=== PATIENT | female | born 1970 | race Caucasian/White ===

== ENCOUNTER 2017-09-27 05:00 | Emergency (ER) | payer MEDICAID, SELFPAY ==
[2017-09-27 05:01] VITALS: BP 159/92; PULSE 97; RESP 20; TEMP 36.8; O2SAT 98; BMI 39.4
--- NOTE | 2017-09-27 05:08 | ED.DCSUM_ITS ---
- ER Visit Summary Date of Service: 09/27/17 Chief Complaint: Epigastric pain History of Present Illness: The patient is a 47 F with significant history for esophageal reflux presents to the emergency department left upper quadrant pain. Patient states that the pain started tonight when she laid down. She states that she had a burning pain in her midepigastric area and her left upper quadrant. She states pain also went to her back ridge states that she does get pain like this from time to time. She was actually seen here about 4 months ago for the same. At that time, she was on Bactrim and it was thought that this was causing her gastritis. She was given GI cocktail and had significant improvement. Patient has had prior history of and appendectomy. She still has her gallbladder. She denies any alcohol use. She denies any history of pancreatitis. She has had no change in bowel habits. Physical Examination: Vital signs reviewed General: Well-nourished, well-developed Head: Normocephalic, atraumatic Eyes: Pupils equal and reactive, extraocular muscles intact Neck, supple, no lymphadenopathy Heart: Regular rate and rhythm Respiratory: No distress, clear bilaterally Abdomen: Soft, tender in the midepigastric area and left upper quadrant without rebound or guarding, nondistended, no peritoneal signs Back: Nontender Extremities: Nontender, no edema, no cords Skin: Normal color no rash Neuro: Alert and oriented, no focal or lateralizing deficits Test Results: [] Emergency Department Course and Treatment: The patient was mildly tender in the midepigastric area but had no rebound or guarding. She does have a history of rather significant gastritis and states that this feels the same. There is been no recent change in medications. IV was established. She was given Zofran and a GI cocktail. This did improve her symptoms but she was still having mild pain. She declined analgesics. I did obtain screening labs. CBC is currently pending, but LFTs and lipase are normal. I do not feel this is acute pancreatitis. Do feel like this is more likely just gastritis versus ulcer. She has had no changes in bowel habits or bleeding. She is given a second GI cocktail with continued improvement. The patient does get flares like this from time to time. I am going to prescribe viscous lidocaine that she can use with her Mylanta to help relieve these acute flares. I do for the patient is safe for outpatient follow-up. She will be discharged home. Treatment Plan: [] Disposition: Discharge Impression: 1. Acute gastritis This note was generated with [employer] dictation software. It may contain incorrect words, spelling, and punctuation that were not noted in review of the chart prior to signing ED Disposition - Plan for ED Patient: Chief Complaint: Abd Pain Instructions: ED PUD Vs Gastritis Prescriptions: Lidocaine 2% Viscous [Xylocaine Viscous] 15 ml PO 4X/DAY PRN #200 ml PRN Reason: Gi Cramping Referrals: Goyo Beckett DO [Primary Care Provider] -
[2017-09-27] MEDS: 0.9% Normal Saline 1,000 ML 125 ML IV (05:16)
[2017-09-27] MEDS: Ondansetron 4 MG/2 ML Vial IV (05:23)
[2017-09-27 06:20] LABS: AST(SGOT) 28 U/L (15-37); Alanine Aminotransfer ALT/SGPT 40 U/L (13-56); Albumin, Serum 3.6 g/dL (3.2-5.0); Alkaline Phosphatase 109 U/L (45-117); Anion Gap 8 (5-15); BUN 9 mg/dL (7-18); BUN/Creat Ratio 10.8 RATIO (10-20); Calcium,Total 8.5 mg/dL (8.5-10.1); Chloride 108 mmol/L (98-107); Creatinine, Serum 0.84 mg/dL (0.55-1.02); EST Glomerular Filtration Rate 78 mL/min (>60); Est Glom Filt Rate - Afr Amer 94 mL/min (>60); Globulin 3.5 g/dL (2.2-4.2); Glucose 255 mg/dL (74-106); Lipase 218 U/L (73-393); Potassium 4.4 mmol/L (3.5-5.1); Protein, Total 7.1 g/dL (6.4-8.2); Sodium Level 141 mmol/L (136-145)
[2017-09-27 06:30] LABS: Absolute Lymphocyte Count 2.97 X10^3/ul (0.83-4.51); Absolute Neutrophil Count 4.6 X10^3/uL (2.0-7.7); Basophil# 0.04 X10^3/uL; Basophil% 0.5 % (0-1); Eosinophils% 2.3 % (0-5); Hematocrit 42.2 % (37-47); Hemoglobin 14.1 g/dl (12.0-15.0); Lymphocyte # 2.97 X10^3/ul (4.0); Lymphocyte % 34.2 % (19-41); Mean Corp Hgb Conc 33.4 g/gl (32-36); Mean Corpuscular Hgb 30.7 pg (27.0-32.0); Mean Corpuscular Volume 91.9 fL (81-99); Mean Platelet Vol. 11.2 fl (6.2-12.0); Monocyte# 0.86 X10^3/uL; Monocyte% 9.9 % (0-10); Neutrophil % 52.9 % (47-70); Platelet Count 308 K/mm3 (150-450); RBC Distribution Width CV 14.4 % (11.6-14.6); RBC Distribution Width SD 48.8 fl (35.1-43.9); Red Blood Count 4.59 M/mm3 (4.2-5.4); White Blood Count 8.7 K/mm3 (4.4-11.0)
[2017-09-27 06:34] LABS: POSITIVE COUNT NO; POSITIVE DIFFERENTIAL NO; POSITIVE MORPHOLOGY NO
[2017-09-27 06:40] VITALS: BP 146/86; PULSE 85; RESP 18; O2SAT 95
== END 2017-09-27 06:44 | disposition home or self-care (01) ==
LOC: ED 05:36
PROVIDERS: Emergency Provider Emergency Medicine; Family Provider Student in an Organized Health Care Education/Training Program; PCP Student in an Organized Health Care Education/Training Program
DX: K29.00 Acute gastritis without bleeding (principal); E66.9 Obesity, unspecified; K21.9 Gastro-esophageal reflux disease without esophagitis; E11.9 Type 2 diabetes mellitus without complications; Z68.39 Body mass index [BMI] 39.0-39.9, adult; Z79.84 Long term (current) use of oral hypoglycemic drugs; Z79.899 Other long term (current) drug therapy; Z72.0 Tobacco use
CPT/HCPCS: 80053; 83690; 85025; 99284; J7030; A4216

== ENCOUNTER 2018-04-17 18:46 | Emergency (ER) | payer MEDICAID, SELFPAY ==
[2018-04-17] VITALS (7 sets, daily range): BP systolic 115–132; BP diastolic 69–99; PULSE 74–135; RESP 12–25; TEMP 37.4; O2SAT 94–97; BMI 38.4
--- NOTE | 2018-04-17 18:49 | ED.RN ---
CALLED FOR EKG PER RN REQUEST, PULLED OLD EKGS FOR
--- NOTE | 2018-04-17 19:14 | EKG12_ITS ---
Test Reason : CHEST PAIN Blood Pressure : / mmHG Vent. Rate : 122 BPM Atrial Rate : 122 BPM P-R Int : 142 ms QRS Dur : 088 ms QT Int : 320 ms P-R-T Axes : 058 011 045 degrees QTc Int : 456 ms Sinus tachycardia Otherwise normal ECG Confirmed by VALERI VELARDE, GERMAN ([id number]), movie editor FRITZ FINCH ([id number]) on 04/19/2018 2:15:47 PM Referred By: DMITRI Confirmed By:GERMAN TRAMMELL MD
--- NOTE | 2018-04-17 19:20 | RAD_ITS ---
STUDY: X-RAY CHEST REASON FOR EXAM: Female, 47 years old. Chest pain. TECHNIQUE: Portable chest. COMPARISON: 12/15/2015. FINDINGS: The lungs are clear and expanded. There is no demonstrated pleural abnormality. Normal size heart. Normal mediastinum and perico. Normal visualized pulmonary arteries. Normal visualized aortic arch and descending thoracic aorta. Normal visualized thoracic spine. Normal visualized ribs, clavicles, and shoulders. There is no demonstrated abnormality of the visualized soft tissue structures of the upper abdomen. RAD/Chest 1 View (Portable) IMPRESSION: Normal x-ray examination of the chest. Electronically Signed: Gila Sahni MD at 20:20 EST Tel , Service support ,
[2018-04-17] MEDS: Ondansetron 4 MG/2 ML Vial IV (19:28)
[2018-04-17] MEDS: Aspirin 81 MG TAB.CHEW 324 MG PO (19:28)
[2018-04-17] MEDS: 0.9% Normal Saline 1,000 ML 150 ML IV (19:28)
[2018-04-17] MEDS: Ketorolac 15 MG/ML Vial IV (19:28)
[2018-04-17 19:37] LABS: D-Dimer Quantitative (DVT/PE) 2.61 FEU/ug/m (0.27-0.49)
--- NOTE | 2018-04-17 19:38 | ED.RN ---
lab called with critical lab results. D dimer 0.61. Dr. Bell made aware at this time
[2018-04-17 19:44] LABS: Absolute Lymphocyte Count 2.16 X10^3/ul (0.83-4.51); Absolute Neutrophil Count 10.4 X10^3/uL (2.0-7.7); Basophil# 0.04 X10^3/uL; Basophil% 0.3 % (0-1); Eosinophil# 0.06 X10^3/uL; Eosinophils% 0.4 % (0-5); Hematocrit 41.6 % (37-47); Hemoglobin 14.1 g/dl (12.0-15.0); Lymphocyte # 2.16 X10^3/ul (4.0); Lymphocyte % 15.2 % (19-41); Mean Corp Hgb Conc 33.9 g/gl (32-36); Mean Corpuscular Hgb 31.8 pg (27.0-32.0); Mean Corpuscular Volume 93.7 fL (81-99); Mean Platelet Vol. 11.3 fl (6.2-12.0); Monocyte# 1.55 X10^3/uL; Monocyte% 10.9 % (0-10); Neutrophil # 10.37 X10^3/uL (2.7-7.7); Neutrophil % 72.9 % (47-70); Platelet Count 345 K/mm3 (150-450); RBC Distribution Width CV 14.6 % (11.6-14.6); RBC Distribution Width SD 48.7 fl (35.1-43.9); Red Blood Count 4.44 M/mm3 (4.2-5.4); White Blood Count 14.2 K/mm3 (4.4-11.0)
[2018-04-17 19:45] LABS: Differential Indicated SCAN CRITERIA MET; POSITIVE COUNT NO; POSITIVE DIFFERENTIAL YES; POSITIVE MORPHOLOGY NO
[2018-04-17 19:47] LABS: AST(SGOT) 21 U/L (15-37); Alanine Aminotransfer ALT/SGPT 33 U/L (13-56); Albumin, Serum 3.8 g/dL (3.2-5.0); Alkaline Phosphatase 124 U/L (45-117); Anion Gap 9 (5-15); BUN 6 mg/dL (7-18); BUN/Creat Ratio 7.5 RATIO (10-20); Bilirubin, Direct 0.24 mg/dL (0.00-0.30); Calcium,Total 9.3 mg/dL (8.5-10.1); Chloride 101 mmol/L (98-107); EST Glomerular Filtration Rate 82 mL/min (>60); Est Glom Filt Rate - Afr Amer 99 mL/min (>60); Estimated Creatinine Clearance 75.07 ml/min; Globulin 4.5 g/dL (2.2-4.2); Glucose 183 mg/dL (74-106); Lipase 99 U/L (73-393); Protein, Total 8.3 g/dL (6.4-8.2); Sodium Level 137 mmol/L (136-145)
--- NOTE | 2018-04-17 19:56 | CT_ITS ---
STUDY: CTA CHEST REASON FOR EXAM: Female, 47 years old. Left-sided chest pain. RADIATION DOSAGE (If Supplied By Facility): CTDIvol = ( 13.20 ) mGy, DLP = ( 659.18 ) mGycm TECHNIQUE: The examination was performed with the intravenous administration of 100 ml of Isovue 370 contrast material. Post-processing of the angiographic images was performed, with multiplanar reformation and 3D reconstruction. Individualized dose optimization techniques were used for this CT. COMPARISON: None. FINDINGS: The heart and pericardium are normal. The aorta is normal in caliber, with no aneurysm or dissection. There is no mediastinal mass or adenopathy. There is no hilar or axillary adenopathy. There is no evidence of pulmonary embolus. Pulmonary arteries are unremarkable. There is no pleural effusion. There is no pulmonary consolidation. No pulmonary mass or nodule. No interstitial or cystic disease. There is diffuse fatty infiltration of the liver. Visualized abdomen is otherwise unremarkable. There is no osseous abnormality. CT/CTA Chest W/WO Contrast IMPRESSION: 1. No evidence of pulmonary embolus or aortic dissection. 2. Hepatic steatosis. Electronically Signed: Gila Sahni MD at 22:24 EST Tel , Service support ,
[2018-04-17 20:32] LABS: Differential Comment SCANNED; Platelet Estimate ADEQUATE (ADEQ)
--- NOTE | 2018-04-17 23:26 | ED.DCSUM_ITS ---
- ER Visit Summary Date of Service: 04/17/18 Chief Complaint: Chest pain History of Present Illness: The patient is a 47 F who reports some nausea and vomiting since last evening. No measured fever. She states she has chronic cough that is unchanged from baseline. She reports sudden onset of chest pain w hile lying at rest tonight. She describes as a needlelike sensation in the left lower ribs. She denies personal history of cardiac disease, but has significant family history. She does have a history of diabetes, hypertension, high cholesterol, hypothyroidism, sleep apnea. Physical Examination: Blood pressure is 132/99, temperature 99.3, heart rate 120, respiratory rate 24, pulse ox 95% on room air. Patient is sitting upright in bed. She appears uncomfortable but no acute distress. Head neck examination is grossly unremarkable. Heart is tachycardic and regular. Lung sounds are grossly clear. She does have reproducible tenderness of the left lower ribs. Abdomen is soft with epigastric tenderness. No guarding or rebound. Hypoactive bowel sounds are noted throughout. Lower external examination was no calf tenderness or edema. Test Results: EKG is sinus tach at 122 with no sign of acute ischemia. Chest x- ray is unremarkable. CBC was a white count of 14.2 with 73% neutrophils. Chemistry studies only significant for glucose of 183. LFTs and lipase unremarkable. Troponin negative. TSH is slightly elevated at 3.8. D-dimer is 2.61. CTA of the chest is obtained that shows no evidence of PE or dissection. No focal infiltrate. Emergency Department Course and Treatment: Patient received aspirin and Zofran on arrival along with a small dose of Toradol. She declined anything stronger for pain. On repeat evaluation patient is resting comfortably. I did discuss my concern with her about her risk factors and significant family history. At this time patient chooses to sign out AGAINST MEDICAL ADVICE. She was encouraged to return immediately if her symptoms worsen or if she changes her mind. Treatment Plan: [] Disposition: AMA Impression: Chest pain This note was generated with [employer] dictation software. It may contain incorrect words, spelling, and punctuation that were not noted in review of the chart prior to signing ED Disposition - Plan for ED Patient: Disposition: Home or Assisted Living Chief Complaint: Chest Pain Instructions: ED Chest Pain Atypical Unkn Cause Referrals: Goyo Beckett DO [Primary Care Provider] - As soon as possible Additional Instructions: You have chosen to sign out. You may return at any time for further evaluation and treatment. Please follow-up with your primary care physician as soon as possible. If your symptoms return or if you change your mind, please return to ED immediately.
--- NOTE | 2018-04-17 23:30 | DCINST.ED_ITS ---
ED Disposition - Plan for ED Patient: Disposition: Home or Assisted Living Chief Complaint: Chest Pain Instructions: ED Chest Pain Atypical Unkn Cause Referrals: Goyo Beckett DO [Primary Care Provider] - As soon as possible Additional Instructions: You have chosen to sign out. You may return at any time for further evaluation and treatment. Please follow-up with your primary care physician as soon as possible. If your symptoms return or if you change your mind, please return to ED immediately.
[2018-04-19 11:54] LABS: Pathologist Review Reviewed
== END 2018-04-17 23:59 | disposition left against medical advice (07) ==
PROVIDERS: Emergency Provider Emergency Medicine; Family Provider Student in an Organized Health Care Education/Training Program; PCP Student in an Organized Health Care Education/Training Program
DX: R07.9 Chest pain, unspecified (principal); K76.0 Fatty (change of) liver, not elsewhere classified; Z53.21 Procedure and treatment not carried out due to patient leaving prior to being seen by health care provider; I10 Essential (primary) hypertension; E78.00 Pure hypercholesterolemia, unspecified; E03.9 Hypothyroidism, unspecified; E11.9 Type 2 diabetes mellitus without complications; K21.9 Gastro-esophageal reflux disease without esophagitis; E66.9 Obesity, unspecified; Z72.0 Tobacco use; Z79.84 Long term (current) use of oral hypoglycemic drugs; Z79.899 Other long term (current) drug therapy
CPT/HCPCS: 71045; 71275; 80048; 80076; 83690; 84443; 84484; 85025; 85379; 93005; 96361; 96374; 96375; 99285; J7030; Q9967; J2405

== ENCOUNTER 2018-04-18 22:40 | Emergency (ER) | payer MEDICAID, SELFPAY ==
[2018-04-17 18:47] VITALS: BMI 38.4
[2018-04-18 22:41] VITALS: BP 150/90; PULSE 114; RESP 26; TEMP 37.1; O2SAT 95; BMI 38.4
[2018-04-18 22:47] VITALS: O2SAT 96
--- NOTE | 2018-04-18 22:57 | ED.DCSUM_ITS ---
- ER Visit Summary Date of Service: 04/18/18 Chief Complaint: [] She stated that this afternoon she developed some right- sided rib pain. It is reproducible with pushing on it movement and taking a cough. She thinks she might have strained a rib or has pleurisy. She does not have a significant cold. She was seen in the emergency department department yesterday with intermittent chest tingling. She was tachycardic at that time. She had a CTA of her chest as well as lab work and a chest x-ray and EKG that just showed sinus tachycardia otherwise negative workup. She stated those symptoms never came back. She took an aspirin this morning. Denies any other symptoms History of Present Illness: The patient is a 47 F [] Physical Examination: [] Vital signs reviewed General: Well-nourished well-developed Head: Normocephalic atraumatic Eyes: Pupils equal round and reactive to light extraocular movements intact ENT: TMs clear no hemotympanum no trauma Neck: Nontender full range of motion Cardiovascular: Regular cardia with normal rhythm no murmurs normal S1-S2 Respiratory: No distress clear to auscultation bilaterally chest piinpoint tenderness right lateral ribs where she says she feels pain. No swelling deformity. It is in the intercostal region Abdomen: Soft nontender nondistended normal bowel sounds no masses Back: Nontender no CVA tenderness Extremities: Nontender active range of motion ?4 extremities no trauma Skin: Normal color no trauma Neuro alert oriented cranial nerves II through XII intact normal strength sensation reflexes Test Results: [] Emergency Department Course and Treatment: [] I discussed doing workup with the patient. At this time this was just done yesterday including lab work and imaging. She would like to hold off on doing this and treat this with anti-inflammatories. I do not feel this is cardiac. I do not think she has a PE if she just had a negative CTA yesterday. I think this is likely pleurisy versus intercostal muscle strain from cough. She was given injection of Toradol at her request and will continue anti-inflammatories Treatment Plan: [] Disposition: [] Impression: [] Right-sided rib pain This note was generated with [employer] dictation software. It may contain incorrect words, spelling, and punctuation that were not noted in review of the chart prior to signing ED Disposition - Plan for ED Patient: Chief Complaint: Shortness of Breath Referrals: Goyo Beckett DO [Primary Care Provider] -
--- NOTE | 2018-04-18 22:57 | ED.DEP ---
ED Disposition - Plan for ED Patient: Disposition: Home or Assisted Living Chief Complaint: Shortness of Breath Instructions: Pleurisy Referrals: Goyo Beckett DO [Primary Care Provider] -
[2018-04-18] MEDS: Ketorolac 60 MG/2 ML Vial IM (23:04)
[2018-04-18 23:17] VITALS: BP 148/76; PULSE 81; RESP 16; O2SAT 97
== END 2018-04-18 23:20 | disposition home or self-care (01) ==
LOC: ED 23:01
PROVIDERS: Emergency Provider Emergency Medicine; Family Provider Student in an Organized Health Care Education/Training Program; PCP Student in an Organized Health Care Education/Training Program
DX: R07.81 Pleurodynia (principal); I10 Essential (primary) hypertension; E11.9 Type 2 diabetes mellitus without complications; J44.9 Chronic obstructive pulmonary disease, unspecified; E03.9 Hypothyroidism, unspecified; Z72.0 Tobacco use; Z79.84 Long term (current) use of oral hypoglycemic drugs; Z79.899 Other long term (current) drug therapy
CPT/HCPCS: 96372; 99282

== ENCOUNTER 2018-07-07 22:00 | Emergency (ER) | payer MEDICAID, SELFPAY ==
[2018-07-07 22:01] VITALS: BP 167/101; PULSE 106; RESP 16; TEMP 37; O2SAT 97; BMI 36.1
[2018-07-07 22:25] LABS: Bacteria 0 SEEN /hpf (None Seen); Mucous, Urine 0 SEEN /hpf (<or=2+); Red Blood Cells-Urine 0 SEEN /hpf (0-5); White Blood Cells 0 SEEN /hpf (0-5)
[2018-07-07 22:36] LABS: Color, Urine Yellow (Yellow); Glucose, Dipstick 1000 mg/dl (Normal); Ketone-Dipstick Negative (Negative); Leukocyte Esterase-Dipstick Negative /ul (Negative); Nitrite-Dipstick Negative (Negative); Occult Blood-Urine Negative /ul (Negative); Protein-Dipstick Negative (Negative); Urine Bilirubin Dipstick Negative (Negative); Urine Clarity Clear (Clear); Urine Urobilinogen Normal (Normal)
[2018-07-07] MEDS: 0.9% Normal Saline 1,000 ML 999 ML IV (22:40)
[2018-07-07] MEDS: Ketorolac 30 MG/ML Syringe IV (22:41)
[2018-07-07 22:45] LABS: Absolute Lymphocyte Count 2.61 X10^3/ul (0.83-4.51); Absolute Neutrophil Count 5.9 X10^3/uL (2.0-7.7); Basophil# 0.07 X10^3/uL; Basophil% 0.7 % (0-1); Eosinophil# 0.23 X10^3/uL; Eosinophils% 2.4 % (0-5); Hematocrit 45.3 % (37-47); Hemoglobin 15.1 g/dl (12.0-15.0); Lymphocyte # 2.61 X10^3/ul (4.0); Lymphocyte % 27.4 % (19-41); Mean Corp Hgb Conc 33.3 g/gl (32-36); Mean Corpuscular Hgb 30.6 pg (27.0-32.0); Mean Corpuscular Volume 91.9 fL (81-99); Mean Platelet Vol. 11.2 fl (6.2-12.0); Monocyte# 0.72 X10^3/uL; Monocyte% 7.6 % (0-10); Neutrophil # 5.87 X10^3/uL (2.7-7.7); Neutrophil % 61.7 % (47-70); Platelet Count 324 K/mm3 (150-450); RBC Distribution Width SD 47.1 fl (35.1-43.9); Red Blood Count 4.93 M/mm3 (4.2-5.4); White Blood Count 9.5 K/mm3 (4.4-11.0)
[2018-07-07 22:47] LABS: Squamous Epithelial Cells - UA 0-5 SEEN /hpf (5-10)
[2018-07-07 22:47] LABS: POSITIVE COUNT NO; POSITIVE DIFFERENTIAL NO; POSITIVE MORPHOLOGY NO
[2018-07-07 23:00] LABS: AST(SGOT) 27 U/L (15-37); Alanine Aminotransfer ALT/SGPT 39 U/L (13-56); Alkaline Phosphatase 121 U/L (45-117); Anion Gap 8 (5-15); BUN 7 mg/dL (7-18); BUN/Creat Ratio 9.8 RATIO (10-20); Calcium,Total 8.9 mg/dL (8.5-10.1); Chloride 102 mmol/L (98-107); Creatinine, Serum 0.72 mg/dL (0.55-1.02); EST Glomerular Filtration Rate 92 mL/min (>60); Est Glom Filt Rate - Afr Amer 112 mL/min (>60); Estimated Creatinine Clearance 82.51 ml/min; Globulin 3.6 g/dL (2.2-4.2); Glucose 297 mg/dL (74-106); Lipase 115 U/L (73-393); Potassium 3.9 mmol/L (3.5-5.1); Protein, Total 7.6 g/dL (6.4-8.2); Sodium Level 137 mmol/L (136-145)
[2018-07-08] VITALS: BP 148/60; PULSE 98; RESP 18; O2SAT 96
[2018-07-08] MEDS: Mag Hydrox/Al Hydrox/Simeth 30 ML UDC PO (00:36)
--- NOTE | 2018-07-08 00:43 | ED.DEP ---
ED Disposition - Plan for ED Patient: Instructions: ED PUD Vs Gastritis Prescriptions: Sucralfate [Carafate] 1 gm PO 4X/DAY 14 Days tab Referrals: Goyo Beckett DO [Primary Care Provider] - Brandon Crystal MD [STAFF PHYSICIAN] -
--- NOTE | 2018-07-08 07:52 | ED.DCSUM_ITS ---
- ER Visit Summary Date of Service: 07/08/18 Chief Complaint: Abdominal pain History of Present Illness: The patient is a 48 F who presents with abdominal pain. It began yesterday. It waxes and wanes. It is described as both burning and stabbing. It is located in the epigastrium and radiates to the back. It was initially just the right upper quadrant but is now spread to a bandlike distribution. The patient rates it as 10 out of 10 however she notes that the worst pain she is ever had was when she was in labor and that was 20 out of 10. No nausea vomiting or diarrhea. Physical Examination: Heart rate 106 blood pressure 167/101 Patient resting comfortably no distress Heart regular rhythm slightly tachycardic Lungs are clear Abdomen soft she does have some epigastric abdominal tenderness without guarding without rebound Alert Test Results: Labs unremarkable except glucose 297. Urinalysis shows glucose otherwise normal. Emergency Department Course and Treatment: Patient was initially treated with fluids and Toradol. She really had no relief with Toradol. She was given a GI cocktail with significant improvement. She does have a history of peptic ulcer disease. She is Wilson on proton pump inhibitor. I gave a prescription for Carafate. I advised that she follow-up with Dr. Crystal who previously treated her H. pylori. Treatment Plan: [] Disposition: Discharge Impression: Epigastric abdominal pain, suspect gastritis This note was generated with [employer] dictation software. It may contain incorrect words, spelling, and punctuation that were not noted in review of the chart prior to signing ED Disposition - Plan for ED Patient: Disposition: Home or Assisted Living Instructions: ED PUD Vs Gastritis Prescriptions: Sucralfate [Carafate] 1 gm PO 4X/DAY 14 Days tab Referrals: Brandon Crystal MD [STAFF PHYSICIAN] - Goyo Beckett DO [Primary Care Provider] -
== END 2018-07-08 00:50 | disposition home or self-care (01) ==
LOC: ED 22:32
PROVIDERS: Emergency Provider Emergency Medicine; Family Provider Student in an Organized Health Care Education/Training Program; PCP Student in an Organized Health Care Education/Training Program
DX: R10.13 Epigastric pain (principal); K21.9 Gastro-esophageal reflux disease without esophagitis; E11.9 Type 2 diabetes mellitus without complications; Z79.84 Long term (current) use of oral hypoglycemic drugs; Z79.899 Other long term (current) drug therapy; Z72.0 Tobacco use
CPT/HCPCS: 80048; 80076; 81001; 83690; 85025; 96361; 96374; 99285; J7030; A4216

== ENCOUNTER 2018-08-25 22:04 | Emergency (ER) | payer MEDICAID, SELFPAY ==
[2018-08-25 22:06] VITALS: BP 143/94; PULSE 110; RESP 18; TEMP 37.8; O2SAT 98; BMI 34.8
--- NOTE | 2018-08-25 22:42 | CT_ITS ---
We are attempting to reach Ej Prater MD to discuss findings. An addendum with communication details will be sent when the communication is complete. STUDY: CT ABDOMEN AND PELVIS WITH CONTRAST REASON FOR EXAM: Female, 48 years old. Abdominal pain RADIATION DOSAGE (If Supplied By Facility): CTDIvol = ( 18.35 ) mGy, DLP = ( 1896.72 ) mGycm TECHNIQUE: Transaxial images were obtained from the dome of the diaphragm to the symphysis pubis without oral contrast. 100ML IV Isovue 300 was administered. Sagittal and coronal images were reconstructed. Individualized dose optimization techniques were used for this CT. COMPARISON: None. FINDINGS: The visualized lung bases are unremarkable. The visualized portions of the heart are within normal limits. Decreased attenuation to the liver. There are innumerable enhancing regions throughout the liver. Some these demonstrate a focal internal area of low attenuation the largest measuring 2.2 cm. Normal gallbladder and extrahepatic biliary system. Normal spleen. 4.3 x 3.4 cm masslike appearance in the distal pancreas. The splenic vein within this region is not well seen. There is some collateralization of the splenic venous return. Normal bilateral adrenal glands. Nonspecific perinephric fatty stranding. There is no hydronephrosis identified. Normal visualized stomach. Normal small intestine. Focal area sigmoid colonic wall thickening. Could be related to underdistention. However recommend correlation with any recent colonoscopy or other studies versus follow-up to ensure resolution. There is non-visualization of the appendix. There is diffuse atherosclerotic calcification of the abdominal aorta, without a demonstrated aneurysm. Normal inferior vena cava. Nonspecific subcentimeter short axis mesenteric and retroperitoneal lymph nodes. Normal urinary bladder. Normal abdominal wall. There are diffuse degenerative changes of the visualized lumbar spine. CT/Abdomen/Pelvis W IV Cont ONLY IMPRESSION: The liver is markedly heterogeneous. There is numerous areas of increased attenuation with some of these demonstrating a more focal internal area of low attenuation. No prior studies are available for comparison. Recommend MRI liver mass protocol to further evaluate. Findings may represent diffuse metastatic disease. There is masslike thickening involving the distal aspect of the pancreas. Recommend correlation with the above-mentioned liver mass protocol MRI scan to further evaluate. There is nonvisualization of a segment of the splenic vein around the above-mentioned masslike pancreatic structure. There is some collateralization of the splenic vein drainage. This could represent splenic vein occlusion within this region. If this is indeed a mass this cannot exclude a mass invasion of the splenic vein. Electronically Signed: Ernesto Green, at 1:01 EDT Tel , Service support ,
[2018-08-25 22:56] LABS: Bedside Glucose 333 mg/dL (70-110)
[2018-08-25 23:02] LABS: Absolute Lymphocyte Count 2.04 X10^3/ul (0.83-4.51); Absolute Neutrophil Count 9.1 X10^3/uL (2.0-7.7); Basophil# 0.05 X10^3/uL; Basophil% 0.4 % (0-1); Eosinophils% 0.8 % (0-5); Hematocrit 44.6 % (37-47); Hemoglobin 15.1 g/dl (12.0-15.0); Lymphocyte # 2.04 X10^3/ul (4.0); Lymphocyte % 16.3 % (19-41); Mean Corp Hgb Conc 33.9 g/gl (32-36); Mean Corpuscular Hgb 30.1 pg (27.0-32.0); Mean Platelet Vol. 11.1 fl (6.2-12.0); Monocyte# 1.17 X10^3/uL; Monocyte% 9.4 % (0-10); Neutrophil % 72.9 % (47-70); POSITIVE COUNT NO; POSITIVE DIFFERENTIAL NO; POSITIVE MORPHOLOGY NO; Platelet Count 304 K/mm3 (150-450); RBC Distribution Width SD 44.9 fl (35.1-43.9); Red Blood Count 5.01 M/mm3 (4.2-5.4); White Blood Count 12.5 K/mm3 (4.4-11.0)
[2018-08-25] MEDS: 0.9% Normal Saline 1,000 ML 1000 ML IV (23:03)
[2018-08-25] MEDS: Ondansetron 4 MG/2 ML Vial IV (23:06)
[2018-08-25] MEDS: Ketorolac 30 MG/ML Syringe IV (23:06)
[2018-08-25 23:07] LABS: Bacteria 0 SEEN /hpf (None Seen); Mucous, Urine 0 SEEN /hpf (<or=2+)
[2018-08-25 23:10] LABS: Color, Urine Yellow (Yellow); Glucose, Dipstick 250 mg/dl (Normal); Ketone-Dipstick Negative (Negative); Leukocyte Esterase-Dipstick 500 /ul (Negative); Nitrite-Dipstick Negative (Negative); Occult Blood-Urine 10 /ul (Negative); Protein-Dipstick 15 mg/dl (Negative); Urine Bilirubin Dipstick Negative (Negative); Urine Clarity Clear (Clear); Urine Urobilinogen Normal (Normal)
[2018-08-25 23:12] VITALS: BP 129/81; PULSE 115; RESP 14; TEMP 38; O2SAT 95
[2018-08-25 23:19] LABS: AST(SGOT) 17 U/L (15-37); Alanine Aminotransfer ALT/SGPT 31 U/L (13-56); Alkaline Phosphatase 133 U/L (45-117); Anion Gap 8 (5-15); BUN 5 mg/dL (7-18); BUN/Creat Ratio 6.3 RATIO (10-20); Calcium,Total 9.2 mg/dL (8.5-10.1); Chloride 102 mmol/L (98-107); Creatinine, Serum 0.79 mg/dL (0.55-1.02); EST Glomerular Filtration Rate 83 mL/min (>60); Est Glom Filt Rate - Afr Amer 100 mL/min (>60); Globulin 3.9 g/dL (2.2-4.2); Glucose 332 mg/dL (74-106); Lipase 134 U/L (73-393); Potassium 3.9 mmol/L (3.5-5.1); Protein, Total 7.9 g/dL (6.4-8.2); Sodium Level 136 mmol/L (136-145)
[2018-08-25 23:20] LABS: Red Blood Cells-Urine 0-5 SEEN /hpf (0-5); Squamous Epithelial Cells - UA 0-5 SEEN /hpf (5-10); White Blood Cells 0-5 SEEN /hpf (0-5)
[2018-08-25 23:24] LABS: Lactic Acid 1.9 mmol/L (0.4-2.0)
--- NOTE | 2018-08-25 23:35 | RAD_ITS ---
STUDY: X-RAY CHEST REASON FOR EXAM: Female, 48 years old. Chest pain TECHNIQUE: Frontal and lateral views of the chest. COMPARISON: April 17, 2018 FINDINGS: The lungs are clear and expanded. There is no demonstrated pleural abnormality. Normal size heart. Normal mediastinum and perico. Normal visualized pulmonary arteries. Normal visualized aortic arch and descending thoracic aorta. Normal visualized thoracic spine. Normal visualized ribs, clavicles, and shoulders. There is no demonstrated abnormality of the visualized soft tissue structures of the upper abdomen. RAD/Chest PA and Lateral IMPRESSION: Normal x-ray examination of the chest. Electronically Signed: Ernesto Green, at 0:26 EDT Tel , Service support ,
[2018-08-26 00:15] VITALS: BP 120/79; PULSE 115; RESP 19; TEMP 37.5; O2SAT 97
[2018-08-26 01:00] VITALS: TEMP 37.1
--- NOTE | 2018-08-26 01:19 | HP.PCM_ITS ---
Problem List (1) Sepsis Status: Acute History of Present Illness Date of Admission: 08/26/18 Chief Complaint: right upper quadrant pain The patient is a 48 year old F with a significant history of nausea; diabetes mellitus; GERD; hypothyroidism; asthma who presented to the emergency department with a 2-day history of progressively worsening excruciating pain at her right upper quadrant to her right flanks. Her pain radiates to her right shoulder. Her pain worsens with taking a deep breath and by lying on her right side. Her pain improves with sitting. Her pain is dull but it becomes sharp with taking a deep breath. Patient denies any nausea, vomiting or anorexia. Further she denies any fever or chills. Patient reported that she recently started a new diabetic medication alogliptin and; and was recently on the vegetable and a full diet and she attributes her current symptoms to the new diabetic medication and the new diet. Patient received Toradol at emergency department to help with the pain. CT of her abdomen showed increase attenuation of the liver and masslike thickening involving the distal aspect of the pancreas and nonvisualization of his segment of the splenic vein and radiologist recommended MRI scan of liver mass protocol. Patient had a temperature of 100 Fahrenheit and the repeat temperature was 100.4. She had a tachycardia with heart rate of 115. Her white count was 12.5. Her urine was somewhat abnormal with urine occult blood; increase leukocyte esterase positive no nitrites or bacteria seen. Her blood glucose was elevated at 333. Past Medical History Past Medical History (Chronic Problems): Chronic Problems Non-alcoholic fatty liver disease (Chronic) history of biliary colic (Chronic) Dyslipidemia (Chronic) Gastroesophageal reflux disease (Chronic) Allergies acetaminophen [From Percocet] Allergy (Verified 08/25/18 22:09) Shortness of breath adhesive Allergy (Verified 08/25/18 22:09) Shortness of breath amoxicillin [Amoxicillin] Allergy (Verified 08/25/18 22:09) Shortness of breath codeine Allergy (Verified 08/25/18 22:09) Shortness of breath metformin Allergy (Verified 08/25/18 22:09) Other morphine Allergy (Verified 08/25/18 22:09) Shortness of breath naproxen [From Naprosyn] Allergy (Verified 08/25/18 22:09) Rash oxycodone HCl [From Percocet] Allergy (Verified 08/25/18 22:09) Shortness of breath propoxyphene HCl [From Darvon] Allergy (Verified 08/25/18 22:09) Shortness of breath propoxyphene napsylate [From Darvocet-N 100] Allergy (Verified 08/25/18 22:09) Shortness of breath atomoxetine HCl [From Strattera] Adverse Reaction (Verified 08/25/18 22:09) Other levothyroxine sodium [From Synthroid] Adverse Reaction (Verified 08/25/18 22:09) Other Home Medications: Ambulatory Orders Medication Instructions Recorded Albuterol Inhaler [Ventolin Hfa] 2 puff INHALATION 4X/DAY PRN PRN 03/24/13 Loratadine [Claritin] 10 mg PO DAILY 03/24/13 Atorvastatin Calcium [Lipitor] 20 mg PO QHS 02/20/14 Ipratropium/Albuterol Sulfate 3 ml INHALATION Q4H.RT 04/22/16 [Duoneb] Glimepiride [Amaryl] 4 mg PO BID 09/27/17 Thyroid,Pork [[place] Thyroid] 30 mg PO DAILY 09/27/17 Alogliptin Benzoate [Alogliptin] 25 mg PO DAILY 08/25/18 Pantoprazole Sodium [Protonix] 40 mg PO DAILY 08/25/18 Surgical History: - - T+A, , appendectomy, BL bunion surgeries. Psychiatric History: Depression DIRECTOR OF PROCUREMENT History: No pertinent DIRECTOR OF PROCUREMENT history Lives: Spouse/ Significant Other Smoking Status: Current every day smoker Tobacco Use: Cigarettes Alcohol: None - *Family History Maternal History Items: Cancer, Diabetes, Heart Disease, Stroke Paternal History Items: Cancer, Diabetes, Heart Disease, Stroke, - - Gout; Enlarged liver; and Pacemaker Review of Systems Constitutional: Denies: Chills, Fever, Weight Change HEENT: Denies: Head Aches, Sinus Congestion, Sinus Drainage Cardiovascular: Denies: Chest Pain, Palpitations Respiratory: Denies: Cough, Shortness of breath at rest, Sputum production Gastrointestinal: Reports: Abdominal Pain. Denies: Nausea, Vomiting Genitourinary: Denies: Dysuria Musculoskeletal: Denies: Joint Pain, Joint Tenderness Skin: Denies: Rash, Wounds Neurological: Denies: Numbness, Tingling, Focal weakness Psychiatric: Denies: Anxiety, Depression, Homicidal Ideations, Suicidal Ideations Hematologic/ Lymphatic: Denies: Easy Bruising, Easy Bleeding VTE Information - Inpt Only VTE Present on Admission: No VTE Mechan Device Prophylaxis: None VTE Pharm Prophylaxis ordered?: Yes - Physical Exam General: Alert, Oriented x3, Cooperative HEENT: Atraumatic, PERRLA, EOMI, Normocephalic Neck: Supple, No JVD, Negative Carotid Bruits Lungs: Clear to auscultation, Normal air movement Cardiovascular: Regular rate, No murmurs Abdomen: Bowel Sounds Present, Soft, Tender - Mild, RUQ Extremities: No edema, Capillary Refill Less than 3 Seconds Skin: No rashes, No breakdown Musculoskeletal: No Tenderness to Palpation of Joints or Extremities Neurological: Cranial nerves II-XII grossly intact Psych/Mental Status: Normal Affect, Appropriate Vital Signs Temp Pulse Resp BP Pulse Ox 98.7 F 115 H 19 H 120/79 97 08/26/18 01:00 08/26/18 00:15 08/26/18 00:15 08/26/18 00:15 08/26/18 00:15 Oxygen Delivery Method Room Air Weight: 92.079 kg Body Mass Index (BMI) 34.8 Finger Stick Blood Glucose 333 Laboratory Tests Past 24 Hrs 08/25/18 08/25/18 08/25/18 22:35 22:52 22:52 WBC 12.5 H RBC 5.01 Hgb 15.1 H Hct 44.6 MCV 89.0 MCH 30.1 MCHC 33.9 RDW 14.0 RDW Differential 44.9 H Plt Count 304 MPV 11.1 Immature Gran % (Auto) 0.200 Neut % (Auto) 72.9 H Lymph % (Auto) 16.3 L [place] % (Auto) 9.4 Eos % (Auto) 0.8 Baso % (Auto) 0.4 Absolute Neuts (auto) 9.1 H Absolute Lymphs (auto) 2.04 Total Counted Not Reportable Sodium 136 Potassium 3.9 Chloride 102 Carbon Dioxide 26.0 Anion Gap 8 BUN 5 L Creatinine 0.79 Estim Creat Clear Calc 75.20 Est GFR (MDRD) Af Amer 100 Est GFR (MDRD) Non-Af 83 BUN/Creatinine Ratio 6.3 L Glucose 332 H Lactic Acid Calcium 9.2 Total Bilirubin 0.40 AST 17 ALT 31 Alkaline Phosphatase 133 H Total Protein 7.9 Albumin 4.0 Globulin 3.9 Albumin/Globulin Ratio 1.0 Lipase 134 Urine Color Yellow Urine Clarity Clear Urine pH 7.0 Ur Specific [place] 1.010 Urine Protein 15 H Urine Glucose (UA) 250 H Urine Ketones Negative Urine Occult Blood 10 H Urine Nitrite Negative Urine Bilirubin Negative Urine Urobilinogen Normal Ur Leukocyte Esterase 500 H Urine RBC 0-5 SEEN Urine WBC 0-5 SEEN Ur Squamous Epith Cells 0-5 SEEN Urine Bacteria 0 SEEN Urine Mucus 0 SEEN 08/25/18 22:52 WBC RBC Hgb Hct MCV MCH MCHC RDW RDW Differential Plt Count MPV Immature Gran % (Auto) Neut % (Auto) Lymph % (Auto) [place] % (Auto) Eos % (Auto) Baso % (Auto) Absolute Neuts (auto) Absolute Lymphs (auto) Total Counted Sodium Potassium Chloride Carbon Dioxide Anion Gap BUN Creatinine Estim Creat Clear Calc Est GFR (MDRD) Af Amer Est GFR (MDRD) Non-Af BUN/Creatinine Ratio Glucose Lactic Acid 1.9 Calcium Total Bilirubin AST ALT Alkaline Phosphatase Total Protein Albumin Globulin Albumin/Globulin Ratio Lipase Urine Color Urine Clarity Urine pH Ur Specific [place] Urine Protein Urine Glucose (UA) Urine Ketones Urine Occult Blood Urine Nitrite Urine Bilirubin Urine Urobilinogen Ur Leukocyte Esterase Urine RBC Urine WBC Ur Squamous Epith Cells Urine Bacteria Urine Mucus POC Glucose 08/25/18 22:43 POC Glucose 333 H Assessment/Plan All Active Problems Sepsis (Acute) The patient is a 48 year old F with a significant history of nausea; diabetes mellitus; GERD; hypothyroidism; asthma who presented to the emergency department with a 2-day history of progressively worsening excruciating pain at her right upper quadrant to her right flanks; and found to have a fever, tachycardia, leukocytosis and radiographic evidence of increased attenuation of the liver and masslike object involving the pancreatic and known visualization of the segment of the splenic vein consistent with inflammation of her abdomen; probable infection; all the problems mass. Probable sepsis Etiology could include hepatitis Discussed the emergency department doctor who started patient on Flagyl and ceftriaxone. We will continue Flagyl and ceftriaxone. Will hydrate with normal saline. Blood cultures are pending. Urinalysis was abnormal but not conclusive for infection. Acute hepatitis panel ordered. We will get MRI of liver?mass protocol PRN Toradol orderdd Probable metastatic disease MRI of liver as above Diabetes Mellitus on presentation her blood glucose was not within goal We will hold alogliptin since patient thinks her symptoms started after initiation of the medication. Home glimepiride continued Finger stick ACHS and 3pm. Long acting insulin and correction scale insulin ordered Tobacco Abuse Counseled. Decline nicotine patch. Asthma Stable PRN albuterol continued HLD Lipitor held inview of liver disease Hypothyroidism Throid medication continued. DVT prophylaxis Subcutaneous Lovenox Code Visit Inpatient E&M: 72598 Init Hosp L3
--- NOTE | 2018-08-26 01:58 | ED.DEP ---
ED Disposition - Plan for ED Patient: Instructions: ED Abdominal Pain Unkn Cause Referrals: Goyo Beckett DO [Primary Care Provider] - Additional Instructions: You were seen today for abdominal pain and fever. Your CAT scan showed multiple abnormalities. We are concerned for potential cancer. It was recommended that you be hospitalized for further workup including an MRI. He did elect to leave AGAINST MEDICAL ADVICE. Risks include worsening of condition, organ failure, . You are welcome to return at any time. I advised that you follow-up with your primary care physician as soon as possible.
[2018-08-26 02:16] VITALS: BP 150/98; PULSE 115; RESP 15; O2SAT 98
--- NOTE | 2018-08-26 02:17 | ED.RN ---
PT REPORTS TO THIS RN THAT SHE DOES NOT WANT TO BE ADMITTED. PT REPORTS THAT SHE WOULD LIKE TO CONTACT HER DOCTORS AT THE [facility] FOR A SECOND OPINION. DR. RODRIGUEZ INFORMED, DR RODRIGUEZ DISCUSSES WITH PT RISKS AND BENEFITS OF LEAVING AGAINST MEDICAL ADVICE. PT VERBALIZES UNDERSTANDING. SIGNS AMA FORM. IV D/C AND COVERED WITH 2X2 GAUZE AND PAPER TAPE. PT SIGNS RELEASE OF INFORMATION SHE REQUESTED TO TAKE INFORMATION HOME. PT DRESSES SELF AND AMBULATES OUT OF DEPT WITH S/O.
--- NOTE | 2018-08-26 04:26 | ED.VISSUMM ---
- ER Visit Summary Date of Service: 08/26/18 Chief Complaint: Right flank pain History of Present Illness: The patient is a 48 F who presents with right flank pain. This been going on for about 1 week. She complains of pain in the right lower back and right upper abdomen. She has a history of peptic ulcer disease but states this feels different. She is also had some productive cough. She is concerned this could be pneumonia. She denies any shortness of breath or chest pain. She does complain of some pain in her right shoulder. Over the past 2 hours she complains of pain with inspiration. Her pain is worsened. No vomiting or diarrhea. Physical Examination: Temperature 100.0, heart rate 110 Moist mucous membranes Heart regular tachycardia Lungs are clear Abdomen soft nondistended She does have right upper quadrant abdominal and right flank tenderness No rash Alert Test Results: Labs are notable for white blood cell count 12.5, glucose of 332. Hepatic function lipase unremarkable. Analysis shows 500 leukocyte esterase but negative nitrates, 0-5 WBCs, 0 bacteria. Lactic acid normal. Blood cultures were sent. Chest x-ray is normal. CT the abdomen shows a markedly heterogenous liver. I was called by radiology who noted some nodular rounded irregularities that were concerning for metastatic disease although infectious process can be ruled out. He also noted masslike thickening of the pancreas. There is a questionable splenic vein occlusion as well. MRI of the abdomen was recommended. Emergency Department Course and Treatment: Workup as above. Patient's repeat temperature was 100.4. Given fever, leukocytosis, tachycardia I did order IV Rocephin and Flagyl for possible infectious process. Her symptoms were otherwise treated with IV fluids Toradol Zofran. I discussed all findings with the patient and we recommended hospitalization which initially the patient was in agreement with. The patient was evaluated by the hospitalist. I was then notified that the patient wishes to leave AGAINST MEDICAL ADVICE to seek a second opinion. Patient understands to return for new or worsening symptoms. We recommended she follow-up as an outpatient as soon as possible. Patient discharged AGAINST MEDICAL ADVICE. Treatment Plan: [] Disposition: Discharge Impression: Right upper quadrant pain Abnormal abdominal CT This note was generated with [employer] software. It may contain incorrect words, spelling, and punctuation that were not noted in review of the chart prior to signing ED Disposition - Plan for ED Patient: Disposition: Against Medical Advice Instructions: ED Abdominal Pain Unkn Cause Referrals: Goyo Beckett DO [Primary Care Provider] - Additional Instructions: You were seen today for abdominal pain and fever. Your CAT scan showed multiple abnormalities. We are concerned for potential cancer. It was recommended that you be hospitalized for further workup including an MRI. He did elect to leave AGAINST MEDICAL ADVICE. Risks include worsening of condition, organ failure, . You are welcome to return at any time. I advised that you follow-up with your primary care physician as soon as possible.
== END 2018-08-26 02:21 | disposition left against medical advice (07) ==
LOC: ED 22:55
PROVIDERS: Emergency Provider Emergency Medicine; Family Provider Student in an Organized Health Care Education/Training Program; PCP Student in an Organized Health Care Education/Training Program; Referring Provider Hospitalist
DX: R10.11 Right upper quadrant pain (principal); R93.5 Abnormal findings on diagnostic imaging of other abdominal regions, including retroperitoneum; Z53.21 Procedure and treatment not carried out due to patient leaving prior to being seen by health care provider; K21.9 Gastro-esophageal reflux disease without esophagitis; K27.9 Peptic ulcer, site unspecified, unspecified as acute or chronic, without hemorrhage or perforation; E11.9 Type 2 diabetes mellitus without complications; Z79.84 Long term (current) use of oral hypoglycemic drugs; Z79.899 Other long term (current) drug therapy; Z72.0 Tobacco use
CPT/HCPCS: 36415; 71046; 74177; 80053; 81001; 82962; 83605; 83690; 85025; 87040; 96361; 96374; 96375; 99284; J7030; Q9967; A4216; J2405

== ENCOUNTER → 2018-10-06 10:10 | Outpatient (CLI) | payer MEDICAID, SELFPAY ==
--- NOTE | 2018-10-06 10:18 | NM_ITS ---
CLINICAL: 48-year-old female with reported history of primary pancreatic carcinoma presenting for apparent initial staging examination. OCTREOTIDE-SOMATOSTATIN RECEPTOR SPECT-CT SCINTIGRAPHY COMPARISON: CT of the abdomen-pelvis 08/25/2018 FINDINGS: Following the intravenous administration of 6.6 mCi of In 111 Octreotide, spot planar projections obtained at 4 hours post tracer administration and whole body, SPECT-CT acquisitions of the abdomen and pelvis obtained at 24 hours post radiopharmaceutical administration reveal: 1. Heterogeneous increased radiopharmaceutical concentration is identified in the left upper abdomen at both 4 and 24 hours post tracer injection in the distribution of the pancreatic body-tail. 2. Multifocal increased tracer distribution is defined in the left and right lobe of the hepatic parenchyma on early and late acquisitions. 3. Physiologic distribution of the radiotracer is otherwise defined in the splenic parenchyma, right and left kidneys, intestinal tract and urinary bladder. NM/GA/Tumor WB SingleDay IMPRESSION: 1. ABNORMAL In-111 OCTREOTIDE SOMATOSTATIN RECEPTOR SCINTIGRAPHY 2. There is visualization of the primary pancreatic tumor defined in the left upper abdomen. 3. Somatostatin receptor avid multifocal hepatic metastatic disease is demonstrated. Electronically Signed: Evert Connelly DO at 8:01 EDT Tel , Service support ,
== END ==
PROVIDERS: Family Provider Student in an Organized Health Care Education/Training Program; PCP Student in an Organized Health Care Education/Training Program; Referring Provider Internal Medicine Hematology & Oncology; Visit Provider Internal Medicine Hematology & Oncology
DX: K55.30 Necrotizing enterocolitis, unspecified (principal)
CPT/HCPCS: 78800; 78802; 78803; A9572

== ENCOUNTER 2019-05-20 04:58 | Emergency (ER) | payer MEDICAID, SELFPAY ==
[2019-05-20 04:59] VITALS: BP 142/63; PULSE 98; RESP 18; TEMP 37.2; O2SAT 98; BMI 34.7
--- NOTE | 2019-05-20 05:10 | ED.VIS.GEN ---
History of Present Illness Chief Complaint: General Illness Informant: Patient Narrative: She stated that she was taking clindamycin for sinus infection. She had her first dose this evening. Soon after she developed side effects. She stated she felt funny and it was difficult to breathe. Currently she feels back to normal. She is unsure if she had a panic attack or the medication caused her to feel short of breath. Currently she is back to normal. She is never taken that before. Denies any nausea or vomiting. EMS brought her for further evaluation. She had no low blood sugar. - Past Medical History (1) Sepsis Status: Acute (2) Dyslipidemia Status: Chronic (3) Gastroesophageal reflux disease Status: Chronic (4) Non-alcoholic fatty liver disease Status: Chronic (5) history of biliary colic Status: Chronic Past Medical History - Allergies and Home Meds Allergies/Adverse Reactions: Allergies acetaminophen [From Percocet] Allergy (Verified 05/20/19 05:07) Shortness of breath adhesive Allergy (Verified 05/20/19 05:07) Shortness of breath amoxicillin [Amoxicillin] Allergy (Verified 05/20/19 05:07) Shortness of breath codeine Allergy (Verified 05/20/19 05:07) Shortness of breath metformin Allergy (Verified 05/20/19 05:07) Other morphine Allergy (Verified 05/20/19 05:07) Shortness of breath naproxen [From Naprosyn] Allergy (Verified 05/20/19 05:07) Rash oxycodone HCl [From Percocet] Allergy (Verified 05/20/19 05:07) Shortness of breath propoxyphene HCl [From Darvon] Allergy (Verified 05/20/19 05:07) Shortness of breath propoxyphene napsylate [From Darvocet-N 100] Allergy (Verified 05/20/19 05:07) Shortness of breath atomoxetine HCl [From Strattera] Adverse Reaction (Verified 05/20/19 05:07) Other levothyroxine sodium [From Synthroid] Adverse Reaction (Verified 05/20/19 05:07) Other Primary Care Physician: Goyo Beckett DO [Primary Care Provider] - Prior records reviewed: Yes Past Medical History: - - See problem list Surgical History: - - T+A, , appendectomy, BL bunion surgeries. Smoking Status: Current every day smoker - Family History Maternal Family History: Reports: Cancer, Diabetes, Heart Disease, Stroke Paternal Family History: Reports: Cancer, Diabetes, Heart Disease, Stroke, - - Gout; Enlarged liver; and Pacemaker Review of Systems General: Denies: Chills, Fever, Sweats Eyes: Denies: Visual changes - bilaterally, Diplopia ENT: Denies: Rhinorrhea, Sore throat Cardiovascular: Denies: Chest pain, Palpitations Respiratory: Reports: Dyspnea. Denies: Cough, Dyspnea on exertion Gastrointestinal: Denies: Abdominal pain, Nausea, Vomiting, Diarrhea, Melena, Hematochezia Genitourinary: Denies: Dysuria, Hematuria, Frequency Musculoskeletal: Denies: Back pain, Extremity Pain Skin: Denies: Rash, Wounds Neurological: Denies: Headache, Weakness, Numbness Physical Exam Vital Signs/Narrative: Vital Signs Temp Pulse Resp BP Pulse Ox 05/20/19 04:59 98.9 F 98 18 142/63 H 98 General: Well nourished, Well developed, No Acute Distress Head: Normocephalic, Atraumatic Eyes: Perrl, EOMI ENT: Moist mucous membranes, No rhinorrhea Neck: Supple, Nontender Cardiovascular: Regular rate, Regular rhythm, No murmurs Respiratory: No distress, CTA bilaterally, Chest nontender Abdomen: Soft, Nontender, Nondistended, Normal bowel sounds Back: Nontender, Normal Inspection Extremities: Nontender, No edema Skin: Normal color, No rash Neurological: Alert, Oriented x3, Cranial nerves II-XII grossly intact, Normal Strength, Normal Sensation Psychological: Normal affect, Normal Mood Diagnostic/Tx/Re-eval - Medical Decision Making Patient symptoms have resolved. I suspect she may have had a reaction to clindamycin. Will be switched to levofloxacin for her sinusitis and follow-up as an outpatient ED Disposition - Plan for ED Patient: Disposition: Home or Assisted Living Diagnosis: Medication side effect Instructions: ALLERGIC REACTION, Drug Prescriptions: levoFLOXacin tablet [Levaquin] 500 mg PO DAILY #7 tab Prescription Printed Referrals: Goyo Beckett DO [Primary Care Provider] -
[2019-05-20 05:22] VITALS: BP 114/75; PULSE 90; RESP 18; O2SAT 97
== END 2019-05-20 05:22 | disposition home or self-care (01) ==
PROVIDERS: Emergency Provider Emergency Medicine; Family Provider Student in an Organized Health Care Education/Training Program; PCP Student in an Organized Health Care Education/Training Program
DX: R06.00 Dyspnea, unspecified (principal); T36.8X5A Adverse effect of other systemic antibiotics, initial encounter; Y92.9 Unspecified place or not applicable; E78.5 Hyperlipidemia, unspecified; K21.9 Gastro-esophageal reflux disease without esophagitis; F17.200 Nicotine dependence, unspecified, uncomplicated; Z88.6 Allergy status to analgesic agent; Z88.5 Allergy status to narcotic agent; Z88.0 Allergy status to penicillin; Z79.4 Long term (current) use of insulin; Z79.899 Other long term (current) drug therapy
CPT/HCPCS: 99284; J7030

== ENCOUNTER 2023-02-26 00:22 | Emergency (ER) | payer MEDICAID, SELFPAY ==
[2023-02-26 00:23] VITALS: BP 135/85; PULSE 90; RESP 15; TEMP 36.9; O2SAT 94; BMI 28.5
--- NOTE | 2023-02-26 01:34 | EDS_ITS ---
HPI History of Present Illness Chief Complaint: General Illness Informant: patient Narrative Narrative: States she has had nasal drainage and some facial pressure for about a week. She gets postnasal drip that will cause a little bit of coughing but she is not really coughing or not at all short of breath. She has COPD but does not feel like this is acting up. She saw her physician on Thursday. A lot of blood work was done. I reviewed her blood [facility]. She had CBC normal other than high white count. Electrolytes were essentially normal. Liver function were essentially normal. COVID, RSV and influenza were negative. Urinalysis was negative. Patient called her physician states she still having nasal drainage discharge and facial pressure. They told her she should come to the emergency department so we can write a prescription for antibiotics. Patient does have a history of liver cancer getting radiation and chemo. But she is not having any symptoms related to that. She states she cannot take amoxicillin. But she responds well to doxycycline with sinus infections. She states she also responds to plain penicillin and does not have a problem with it. She really does not want a work-up. She states she does not feel systemi claudette ill she just feels she is getting a sinus infection and would like to get treatment for it. [facility] Medical History Anxiety Asthma Carcinoid syndrome Cholangitis Chronic dental infection COPD (chronic obstructive pulmonary disease) Diabetes mellitus Duodenal ulcer Dysphagia GERD (gastroesophageal reflux disease) Heart murmur Hyperlipidemia Hypertension Hypothyroidism Liver cancer Liver cirrhosis secondary to nonalcoholic steatohepatitis (CHRISTENSEN) Malignant neoplasm of pancreas Non-allergic rhinitis Nontoxic multinodular goiter Pancreatic cancer Vitamin D deficiency Home Medications albuterol sulfate 90 mcg/actuation aerosol inhaler (Ventolin HFA) 2 puff inhalation 4X/DAY PRN PRN Shortness Of Breath 03/24/13 [History Last Taken 04/17/18] loratadine 10 mg tablet (Allergy Relief (loratadine)) 10 mg PO DAILY 03/24/13 [History Last Taken 04/17/18] atorvastatin 20 mg tablet 20 mg PO QHS 02/20/14 [History Last Taken 04/17/18] thyroid (pork) 30 mg tablet ([place] Thyroid) 30 mg PO DAILY 09/27/17 [History Last Taken 04/17/18] alogliptin 25 mg tablet 25 mg PO DAILY 08/25/18 [History Last Taken Unknown] pantoprazole 40 mg tablet,delayed release 40 mg PO DAILY 08/25/18 [History Last Taken Unknown] cholecalciferol (vitamin D3) 125 mcg (5,000 unit) capsule 5,000 unit PO DAILY 05/20/19 [History Last Taken Unknown] clindamycin HCl 300 mg capsule 300 mg PO TID 05/20/19 [History Last Taken Unknown] insulin glargine 100 unit/mL (3 mL) subcutaneous pen 8 unit subcut BID 05/20/19 [History Last Taken Unknown] insulin glargine 100 unit/mL (3 mL) subcutaneous pen 40 unit subcut QHS 05/20/19 [History Last Taken Unknown] levofloxacin 500 mg tablet 500 mg PO DAILY #7 tabs 05/20/19 [Rx Last Taken Unknown] doxycycline monohydrate 100 mg capsule 100 mg PO BID #20 CAPSULES 02/26/23 [Rx Last Taken Unknown] Allergy/AdvReac Type Severity Reaction Status Date / Time acetaminophen [From Percocet] Allergy Shortness Verified 02/26/23 00:28 of breath adhesive Allergy Shortness Verified 02/26/23 00:28 of breath amoxicillin [Amoxicillin] Allergy Shortness Verified 02/26/23 00:28 of breath codeine Allergy Shortness Verified 02/26/23 00:28 of breath fentanyl Allergy UNRESPONSIV Verified 02/26/23 00:30 E metformin Allergy Other Verified 02/26/23 00:28 morphine Allergy Shortness Verified 02/26/23 00:28 of breath naproxen [From Naprosyn] Allergy Rash Verified 02/26/23 00:28 oxycodone HCl [From Percocet] Allergy Shortness Verified 02/26/23 00:28 of breath propoxyphene HCl Allergy Shortness Verified 02/26/23 00:28 [From Darvon] of breath propoxyphene napsylate Allergy Shortness Verified 05/20/19 05:07 [From Darvocet-N 100] of breath atomoxetine HCl AdvReac Other Verified 02/26/23 00:28 [From Strattera] levothyroxine sodium AdvReac Other Verified 02/26/23 00:28 [From Synthroid] CLINDAMYCIN Allergy SEIZURES Uncoded 02/26/23 00:29 Surgical History H/O splenectomy Hx of colectomy Social History Smoking Status: Current every day smoker tobacco type: cigarettes ROS ROS ED Constitutional Constitutional ED: Denies chills or fever(s) Eyes Eyes: Denies change in vision or diplopia ENT ENT ED: Reports rhinorrhea and other Details: History of present illness. Cardiovascular Cardiovascular: Denies chest pain Respiratory/Chest Respiratory/Chest: Denies dyspnea or sputum Gastrointestinal Gastrointestinal: Denies abdominal pain Genitourinary Genitourinary ED: Denies dysuria Musculoskeletal Musculoskeletal: Denies myalgias Integumentary Denies rash Neurologic Neurologic: Denies headache(s), paresthesias or weakness Hematologic/Lymphatic Hematologic/Lymphatic: Denies easy bleeding or easy bruising Allergic/Immunologic Allergic/Immunologic ED: Denies mouth swelling, tongue swelling or urticaria EXAM Physical Exam Narrative Exam Narrative: General: Patient awake alert she looks very nontoxic sitting in the room. HEENT: She does have some mild nasal discharge and congestion. Mild facial tenderness. But no swelling or erythema. No pain with range of motion of eyes. She has diffusely poor dentition but none of them appear to be acutely infected. She did have some dental work done about 2 to 3 weeks ago but is not having pain there. She swallows normally. Neck is supple. I do not feel lymphadenopathy Lungs show minimal expiratory wheeze. She states this is chronic and she is not having any problems with her COPD. Heart is regular. Abdomen is not tender. Extremities show no rashes or pallor. No edema. Const Vital Signs: 02/26/23 00:23 02/26/23 01:22 Temperature 98.4 F Temperature Source Temporal Pulse Rate 90 Respiratory Rate 15 Respiratory Effort Normal Respiratory Pattern Normal Blood Pressure 135/85 H Blood Pressure Mean 101 Pulse Ox 94 Oxygen Delivery Method Room Air MDM MDM MDM Narrative Medical decision making narrative: I do not think we need to repeat the blood work as she just had this done on the second of this month. The only abnormality was an elevated white count. She has about a week of symptoms now. She has a history of sinus infections. With her symptoms her duration and her prior work-up we will initiate antibiotics and she can follow-up with her primary physician. Discharge Plan Triage Chief Complaint: General Illness ED Provider: Jayce Cornejo Dx/Rx/DC Orders Clinical Impression: Sinusitis, History of liver cancer Instructions: ED Sinusitis (Antibiotic Treatment) Prescriptions: New doxycycline monohydrate 100 mg capsule 100 mg PO BID Qty: 20 0RF No Action albuterol sulfate [Ventolin HFA] 1 INHALER inhaler 2 puff inhalation 4X/DAY PRN PRN (Reason: Shortness Of Breath) Patient Comments: SHORTNESS OF BREATH loratadine [Allergy Relief (loratadine)] 10 MG tablet 10 mg PO DAILY Patient Comments: ALLERGIES atorvastatin 20 MG tablet 20 mg PO QHS thyroid (pork) [[place] Thyroid] 30 MG tablet 30 mg PO DAILY pantoprazole 40 MG tablet 40 mg PO DAILY alogliptin 25 MG tablet 25 mg PO DAILY clindamycin HCl 300 MG capsule 300 mg PO TID cholecalciferol (vitamin D3) 5,000 UNIT capsule 5,000 unit PO DAILY insulin glargine 100 UNIT/ML insulin pen 8 unit subcut BID insulin glargine 100 UNIT/ML insulin pen 40 unit subcut QHS levofloxacin 500 MG tablet 500 mg PO DAILY Qty: 7 0RF Primary Care Provider: Goyo Beckett Referrals: Goyo Beckett DO [Primary Care Provider] - 3-5 Days Disposition Disposition: Home, Self Care
[2023-02-26] MEDS: Doxycycline 100 MG CAPSULE PO (01:38)
== END 2023-02-26 01:34 | disposition home or self-care (01) ==
LOC: ED 01:45
PROVIDERS: Emergency Provider Emergency Medicine; PCP Student in an Organized Health Care Education/Training Program; Visit Provider Emergency Medicine
DX: J32.9 Chronic sinusitis, unspecified (principal); F17.210 Nicotine dependence, cigarettes, uncomplicated
CPT/HCPCS: 99283; A4216

== ENCOUNTER 2024-07-07 19:28 | Emergency (ER) | payer MEDICAID, SELFPAY ==
[2024-07-07 19:29] VITALS: BP 131/76; PULSE 81; RESP 20; TEMP 36.9; O2SAT 97; BMI 27.6
[2024-07-07] MEDS: 0.9% Normal Saline (1000mL) 1,000 ML 1000 ML IV ×2 (20:05→21:11)
[2024-07-07 20:09] VITALS: BP 120/75; BP 122/73; BP 126/73; PULSE 75; PULSE 77; PULSE 85
--- NOTE | 2024-07-07 20:18 | EX.ED.DYSGE1 ---
HPI History of Present Illness Chief Complaint: Cold Sx Detail of Chief Complaint: Viral illnesses started Thursday. Now complains of dehydration Informant: patient Onset/Context/Timing Onset: Days Context: Sudden Onset Timing: Continuous (Upper respiratory tract symptoms predominantly) Quality: Rhinorrhea, congestion, sore throat, hoarse voice slight cough and vomiting Current Severity: Mild Maximum Severity: Moderate Worsened by: Nothing Relieved by: Nothing Associated Symptoms Associated Symptoms: Thirst, dry mouth, decreased p.o. intake and decreased urine output Narrative Narrative: Patient is a 54-year-old woman. She is a smoker. She states she she quit 4 days ago. informing that she still smokes. She endorses upper respiratory tract infectious symptoms. She had 1 episode of vomiting. There is no hematemesis or coffee-ground emesis. She denies diarrhea. She complained of subjective fever. She denies headache, double vision blurred vision loss of vision. Eyes hickman ears decreased hearing. Denies discharge from ears. She denies neck pain or neck stiffness. Patient has slight cough. She denies dyspnea. She denies dyspnea on exertion. She denies abdominal pain. She had the 1 episode of vomiting otherwise GI is negative. Patient denies dysuria, frequency, urgency or hematuria. Prior similar symptoms: Yes Recent Illness/Hospitalization: Yes (Patient was seen at outside facility on Thursday and told she had upper respi) [facility] Medical History Carcinoid syndrome Anxiety Cholangitis Dysphagia Chronic dental infection Heart murmur Malignant neoplasm of pancreas Vitamin D deficiency Hypertension Hypothyroidism Hyperlipidemia Liver cirrhosis secondary to nonalcoholic steatohepatitis ([facility]ST[facility]) Non-allergic rhinitis GERD (gastroesophageal reflux disease) COPD (chronic obstructive pulmonary disease) Asthma Nontoxic multinodular goiter Duodenal ulcer Diabetes mellitus Liver cancer Pancreatic cancer Home Medications ?Medication ?Instructions ?Recorded ?Last Taken ?Type albuterol sulfate 90 mcg/actuation 2 puff inhalation 4X/DAY PRN PRN 03/24/13 04/17/18 History aerosol inhaler (Ventolin HFA) Shortness Of Breath loratadine 10 mg tablet (Allergy 10 mg PO DAILY 03/24/13 04/17/18 History Relief (loratadine)) atorvastatin 20 mg tablet 20 mg PO QHS 02/20/14 04/17/18 History thyroid (pork) 30 mg tablet 30 mg PO DAILY 09/27/17 04/17/18 History ([place] Thyroid) alogliptin 25 mg tablet 25 mg PO DAILY 08/25/18 Unknown History pantoprazole 40 mg tablet,delayed 40 mg PO DAILY 08/25/18 Unknown History release cholecalciferol (vitamin D3) 125 5,000 unit PO DAILY 05/20/19 Unknown History mcg (5,000 unit) capsule insulin glargine 100 unit/mL (3 8 unit subcut BID 05/20/19 Unknown History mL) subcutaneous pen insulin glargine 100 unit/mL (3 40 unit subcut QHS 05/20/19 Unknown History mL) subcutaneous pen buprenorphine 5 mcg/hour weekly 1 patch transdermal Q7D 07/07/24 Unknown History transdermal patch (Butrans) Allergy/AdvReac Type Severity Reaction Status Date / Time acetaminophen (From Percocet) Allergy Shortness Verified 07/07/24 19:29 of breath adhesive Allergy Shortness Verified 07/07/24 19:29 of breath amoxicillin (Amoxicillin) Allergy Shortness Verified 07/07/24 19:29 of breath codeine Allergy Shortness Verified 07/07/24 19:29 of breath fentanyl Allergy UNRESPONSIV Verified 07/07/24 19:29 E metformin Allergy Other Verified 07/07/24 19:29 morphine Allergy Shortness Verified 07/07/24 19:29 of breath naproxen (From Naprosyn) Allergy Rash Verified 07/07/24 19:29 oxycodone HCl (From Percocet) Allergy Shortness Verified 07/07/24 19:29 of breath propoxyphene HCl (From Allergy Shortness Verified 07/07/24 19:29 Darvon) of breath propoxyphene napsylate (From Allergy Shortness Verified 07/07/24 19:29 Darvocet-N 100) of breath atomoxetine HCl (From AdvReac Other Verified 07/07/24 19:29 Strattera) levothyroxine sodium (From AdvReac Other Verified 07/07/24 19:29 Synthroid) CLINDAMYCIN Allergy SEIZURES Uncoded 02/26/23 00:29 Surgical History Hx of colectomy H/O splenectomy Social History Smoking Status: Current every day smoker tobacco type: cigarettes ROS ROS ED Constitutional Constitutional ED: Reports chills; Denies fever(s), subjective or sweats Eyes Eyes: Denies blurry vision, change in vision or diplopia ENT ENT ED: Reports rhinorrhea and sore throat; Denies ear pain Cardiovascular Cardiovascular: Denies chest pain, orthopnea, palpitations or paroxysmal nocturnal dyspnea Respiratory/Chest Respiratory/Chest: Reports cough and dyspnea; Denies dyspnea on exertion, orthopnea, paroxysmal nocturnal dyspnea or sputum Gastrointestinal Gastrointestinal: Reports nausea and vomiting; Denies abdominal pain, constipation, diarrhea or melena Genitourinary Genitourinary ED: Reports other Details: Reports decreased urine output. ; Denies dysuria, hematuria or urinary frequency Musculoskeletal Musculoskeletal: Denies arthralgias or myalgias Integumentary Denies Abrasions, rash or other Neurologic Neurologic: Reports weakness; Denies headache(s) or paresthesias Endocrine Endocrinology: Denies cold intolerance or heat intolerance Hematologic/Lymphatic Hematologic/Lymphatic: Reports systems reviewed and no addt'l complaints, except as documented EXAM Physical Exam Const Vital Signs: 07/07/24 19:29 07/07/24 19:31 07/07/24 20:09 Temperature 98.4 F Temperature Source Oral Pulse Rate 81 Pulse Rate [Lying] 75 Pulse Rate [Sitting (for 1 minute prior to obtaining)] 77 Pulse Rate [Standing (for 1 minute prior to obtaining)] 85 Respiratory Rate 20 H Respiratory Effort Normal Non-Labored Respiratory Pattern Normal Blood Pressure 131/76 H Blood Pressure [Lying] 126/73 H Blood Pressure [Sitting (for 1 minute prior to obtaining)] 122/73 H Blood Pressure [Standing (for 1 minute prior to obtaining)] 120/75 Blood Pressure Mean 94 Blood Pressure Mean [Lying] 90 Blood Pressure Mean [Sitting (for 1 minute prior to obtaining)] 89 Blood Pressure Mean [Standing (for 1 minute prior to obtaining)] 90 Pulse Ox 97 Oxygen Delivery Method Room Air 07/07/24 22:49 Temperature 97.9 F Temperature Source Pulse Rate 71 Pulse Rate [Lying] Pulse Rate [Sitting (for 1 minute prior to obtaining)] Pulse Rate [Standing (for 1 minute prior to obtaining)] Respiratory Rate 16 Respiratory Effort Respiratory Pattern Blood Pressure 139/70 H Blood Pressure [Lying] Blood Pressure [Sitting (for 1 minute prior to obtaining)] Blood Pressure [Standing (for 1 minute prior to obtaining)] Blood Pressure Mean 93 Blood Pressure Mean [Lying] Blood Pressure Mean [Sitting (for 1 minute prior to obtaining)] Blood Pressure Mean [Standing (for 1 minute prior to obtaining)] Pulse Ox 99 Oxygen Delivery Method Vital signs noted. Orthostatic vital signs were negative. Positive well nourished and well developed General Appearance ED: well developed and NAD; Negative for cyanotic, diaphoretic or pallor HEENT Reports dry mucous membranes HEENT Narrative: Head is atraumatic normocephalic. Ears normal. TMs normal. Nares patent. Posterior pharynx without erythema or exudate. Mouth ED: Yes dry mucous membranes Mouth: dry mucous membranes Eyes PERRL and EOMs intact bilaterally General Eye ED: Negative for pale conjunctiva or scleral icterus Neck no lymphadenopathy, supple and no JVD Chest Wall inspection of chest normal and palpation of chest normal Resp normal respiratory effort and clear to auscultation bilaterally Cardio regular rate, regular rhythm, S1 normal heart sound, S2 normal heart sound and no murmurs GI normal to inspection, nondistended, normoactive bowel sounds, non-tender, non-distended and no masses; Negative for hepatosplenomegaly Back/Spine no CVA tenderness Extremity normal to inspection General Extremety ED: Negative for edema or tenderness General Extremity: Negative for edema Neuro oriented x3 and CN's II-XII intact bilaterally Sensorium / Orientation: alert Psych mental status grossly normal Skin no rashes or lesions noted, no wounds and skin turgor normal General Skin Exam: Negative for elasticity normal, jaundice or pallor MDM MDM MDM Narrative Medical decision making narrative: Patient with viral like symptoms. Clinic she is dehydrated. Because she is reporting decreased urine output and urine is dark and clinically is dehydrated 1 L of normal saline was ordered and a BMP was ordered to assess renal function, electrolytes CO2 anion gap. CBC is of no benefit. Since she has no abnormal oscillatory findings in her lungs chest x-ray was not obtained. Patient was last seen February 2023 and at that time was positive for liver cancer. She sees Dr. Carlos Caldera. Has history of pancreatic cancer. Prior visit was 2018 and she was admitted for sepsis. Patient is outside the window for treatment for Tamiflu. History & Record Review Additional record(s) reviewed:: Prior inpatient record, Prior ED visit and Prior labs Lab Data Attestation: I reviewed the patient's lab results. Lab results narrative: BMP reveals mild hyponatremia and hypochloremia. Glucose is elevated to 43. CO2 anion gap are normal. Patient is insulin-dependent. Will administer insulin for elevated blood sugar. Presume she has influenza A since her has influenza A. Labs: Laboratory Results - last 24 hr 07/07/24 20:03 Sodium 133 L Potassium 3.9 Chloride 95 L Carbon Dioxide 30.0 Anion Gap 8 BUN 11 Creatinine 0.65 Estim Creat Clear Calc 96.81 Est GFR (MDRD) Af Amer 122 Est GFR (MDRD) Non-Af 101 BUN/Creatinine Ratio 16.9 Glucose 243 H Calcium 9.3 Treatment and Re-Evaluation :: Patient urinated after second IV of normal saline infused. Presumption is patient has influenza A since her has influenza A, and reason she was not tested. Discharge Plan Triage Chief Complaint: Cold Sx ED Provider: Jann Shipman Dx/Rx/DC Orders Clinical Impression: Influenza A, Dyslipidemia, Non-alcoholic fatty liver disease, Acute dehydration, Acute hyperglycemia Instructions: ED Influenza (Adult) Prescriptions: No Action albuterol sulfate [Ventolin HFA] 1 INHALER inhaler 2 puff inhalation 4X/DAY PRN PRN (Reason: Shortness Of Breath) Patient Comments: SHORTNESS OF BREATH loratadine [Allergy Relief (loratadine)] 10 MG tablet 10 mg PO DAILY Patient Comments: ALLERGIES atorvastatin 20 MG tablet 20 mg PO QHS thyroid (pork) [[place] Thyroid] 30 MG tablet 30 mg PO DAILY pantoprazole 40 MG tablet 40 mg PO DAILY alogliptin 25 MG tablet 25 mg PO DAILY cholecalciferol (vitamin D3) 5,000 UNIT capsule 5,000 unit PO DAILY insulin glargine 100 UNIT/ML insulin pen 8 unit subcut BID insulin glargine 100 UNIT/ML insulin pen 40 unit subcut QHS buprenorphine [Butrans] 5 mcg/hour patch weekly 1 patch transdermal Q7D Primary Care Provider: Goyo Beckett Referrals: Goyo Beckett DO [Primary Care Provider] - 1 Week if not improving Print Language: Danish Disposition Disposition: Home, Self Care Discharge Date/Time: 07/07/24 22:58
[2024-07-07 20:26] LABS: Anion Gap 8 (5-15); BUN 11 mg/dL (7-18); BUN/Creat Ratio 16.9 RATIO (10-20); Calcium,Total 9.3 mg/dL (8.5-10.1); Chloride 95 mmol/L (98-107); Creatinine, Serum 0.65 mg/dL (0.55-1.02); EST Glomerular Filtration Rate 101 mL/min (>60); Est Glom Filt Rate - Afr Amer 122 mL/min (>60); Estimated Creatinine Clearance 96.81 ml/min; Glucose 243 mg/dL (74-106); Potassium 3.9 mmol/L (3.5-5.1); Sodium Level 133 mmol/L (136-145)
[2024-07-07] MEDS: Insulin Lispro 100 UNIT/ML INSULN.PEN SC (21:22)
[2024-07-07 22:49] VITALS: BP 139/70; PULSE 71; RESP 16; TEMP 36.6; O2SAT 99
[2024-07-07 23:06] LABS: Bedside Glucose 149 mg/dL (74-106)
== END 2024-07-07 22:58 | disposition home or self-care (01) ==
PROVIDERS: Emergency Provider Emergency Medicine; PCP Student in an Organized Health Care Education/Training Program; Visit Provider Emergency Medicine
DX: J10.1 Influenza due to other identified influenza virus with other respiratory manifestations (principal); J44.9 Chronic obstructive pulmonary disease, unspecified; Z79.4 Long term (current) use of insulin; E86.0 Dehydration; E87.1 Hypo-osmolality and hyponatremia; E87.8 Other disorders of electrolyte and fluid balance, not elsewhere classified; K76.0 Fatty (change of) liver, not elsewhere classified; R73.9 Hyperglycemia, unspecified; I10 Essential (primary) hypertension; F41.9 Anxiety disorder, unspecified; E55.9 Vitamin D deficiency, unspecified; E03.9 Hypothyroidism, unspecified; E78.5 Hyperlipidemia, unspecified; K21.9 Gastro-esophageal reflux disease without esophagitis; F17.210 Nicotine dependence, cigarettes, uncomplicated; Z88.0 Allergy status to penicillin; Z85.05 Personal history of malignant neoplasm of liver; Z85.07 Personal history of malignant neoplasm of pancreas; Z87.19 Personal history of other diseases of the digestive system; Z90.49 Acquired absence of other specified parts of digestive tract; Z90.81 Acquired absence of spleen; Z79.899 Other long term (current) drug therapy
CPT/HCPCS: 80048; 82962; 96360; 96361; 96372; 99284; A4216

== ENCOUNTER 2024-08-18 17:08 | Emergency (ER) | payer MEDICAID, SELFPAY ==
[2024-08-18] VITALS (19 sets, daily range): BP systolic 115–137; BP diastolic 56–99; PULSE 75–110; RESP 16–26; TEMP 36.4–37.6; O2SAT 91–98; BMI 27.1
--- NOTE | 2024-08-18 18:19 | RAD_ITS ---
PROCEDURE: CHEST PA AND LATERAL 08/18/2024 REASON FOR EXAM: WEAKNESS TECHNIQUE: PA and lateral views of the chest. COMPARISON: Chest x-ray 08/25/2018 FINDINGS: The lungs appear clear. The cardiac and mediastinal contours appear within limits. No pleural effusion seen. There is now a biliary stent noted right upper quadrant and surgical clips suggesting cholecystectomy with a few faint scattered calcific densities right upper quadrant now seen. Visualized osseous structures appear within limits. RAD/Chest PA and Lateral IMPRESSION: No evidence of acute disease. Reading Location: [id number]
--- NOTE | 2024-08-18 18:19 | EKG12_ITS ---
Test Reason : DIZZINESS Blood Pressure : */* mmHG Vent. Rate : 97 BPM Atrial Rate : 97 BPM P-R Int : 150 ms QRS Dur : 88 ms QT Int : 356 ms P-R-T Axes : 37 6 32 degrees QTcB Int : 452 ms Normal sinus rhythm Normal ECG Confirmed by VALERI VELARDE, GERMAN ([id number]), editorial director PAM NAZARIO ([id number]) on 08/19/2024 8:21:31 AM Referred By: SLOAN Confirmed By: GERMAN TRAMMELL MD
--- NOTE | 2024-08-18 18:21 | EDS_ITS ---
HPI History of Present Illness Chief Complaint: Dizziness Informant: patient and family Onset/Context/Timing Onset: Today Context: Gradual Onset Timing: Continuous Current Severity: Mild Maximum Severity: Mild Narrative Narrative: 54-year-old female history of pancreatic CA with mets to her liver, hip, femur and pelvis. Also history of diabetes currently undergoing chemotherapy injections. Had 1 today. Says he just feels generally weak and dehydrated. She is nauseated without vomiting or diarrhea. No dysuria or constipation. She did note blood in her urine. Denies any fever she has a chronic cough. 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) Non-allergic rhinitis GERD (gastroesophageal reflux disease) COPD (chronic obstructive pulmonary disease) Asthma Nontoxic multinodular goiter Duodenal ulcer Diabetes mellitus Liver cancer Pancreatic cancer Home Medications ?Medication ?Instructions ?Recorded ?Last Taken ?Type albuterol sulfate 90 mcg/actuation 2 puff inhalation 4 X/DAY PRN PRN 03/24/13 04/17/18 History aerosol inhaler (Ventolin HFA) Shortness Of Breath loratadine 10 mg tablet (Allergy 10 mg PO DAILY 04/17/18 History Relief (loratadine)) atorvastatin 20 mg tablet 20 mg PO QHS 02/20/14 History thyroid (pork) 30 mg tablet 30 mg PO DAILY 09/27/17 History (Beverly Thyroid) alogliptin 25 mg tablet 25 mg PO DAILY 08/25/18 Unkn own History pantoprazole 40 mg tablet,delayed 40 mg PO BID 9 Unknown History release cholecalciferol (vitamin D3) 125 5,000 unit PO DAILY 1 07/21/18 Unknown History mcg (5,000 unit) capsule insulin glargine 100 unit/mL (3 62 unit subcut QHS Unknown History mL) subcutaneous pen buprenorphine 5 mcg/hour weekly 1 patch transdermal Q7 D 07/07/24 Unknown History transdermal patch (Butrans) Lactobacillus acidoph-L.bulgaricus 2 tab PO DAILY 07/24 12/16 Unknown History 1 million cell tablet ascorbic acid (vitamin C) 500 mg 500 mg PO DAILY 08/18 Unknown History tablet (Vitamin C) cholestyramine (with sugar) 4 gram 1 ea PO DAILY 08/18 Unknown History powder for susp in a packet dextromethorphan-guaifenesin 10 5 ml PO QHS 08/18/24 U nknown History mg-200 mg/5 mL oral liquid (Diabetic Tussin DM) gabapentin 300 mg capsule 300 mg PO TID 08/18/24 Unkno wn History insulin aspart U-100 100 unit/mL 1 sliding scale dose subcut TID 08/18/24 Unknown History (3 mL) subcutaneous pen levothyroxine 125 mcg tablet 125 mcg PO DAILY 08/18/24 Unknown History lidocaine 5 % topical patch 1 patch topical DAILY 07/24 12/16 Unknown History jcfabe-[id number] 2 cap PO BID 08/18/24 Unknow n History 40,000-126,000-168,000 unit capsule, delay rel (Zenpep) Allergy/AdvReac Type Severity Reaction Status Date / Time acetaminophen (From Percocet) Allergy Shortness Verified 07/07/24 19:29 of breath adhesive Allergy Shortness Verified 07/07/24 19:29 of breath amoxicillin (Amoxicillin) Allergy Shortness Verified 07/07/24 19:29 of breath codeine Allergy Shortness Verified 07/07/24 19:29 of breath fentanyl Allergy UNRESPONSIV Verified 07/07/24 19:29 E metformin Allergy Other Verified 07/07/24 19:29 morphine Allergy Shortness Verified 07/07/24 19:29 of breath naproxen (From Naprosyn) Allergy Rash Verified 07/07/24 19:29 oxycodone HCl (From Percocet) Allergy Shortness Verified 07/07/24 19:29 of breath propoxyphene HCl (From Allergy Shortness Verified 07/07/24 19:29 Darvon) of breath propoxyphene napsylate (From Allergy Shortness Verified 07/07/24 19:29 Darvocet-N 100) of breath atomoxetine HCl (From AdvReac Other Verified 07/07/24 19:29 Strattera) levothyroxine sodium (From AdvReac Other Verified 07/07/24 19:29 Synthroid) CLINDAMYCIN Allergy SEIZURES Uncoded 02/26/23 00:29 Surgical History Hx of colectomy H/O splenectomy Social History housing: house Smoking Status: Current every day smoker tobacco type: cigarettes ROS ROS ED ROS Narrative Generalized weakness. Nausea. Constitutional Constitutional ED: Denies chills or fever(s) Eyes Eyes: Denies blurry vision ENT ENT ED: Denies ear pain Cardiovascular Cardiovascular: Denies chest pain Respiratory/Chest Respiratory/Chest: Denies cough Gastrointestinal Gastrointestinal: Reports nausea; Denies abdominal pain, constipation, diarrhea, melena or vomiting Genitourinary Genitourinary ED: Reports hematuria; Denies dysuria Musculoskeletal Musculoskeletal: Denies arthralgias Integumentary Denies abscess Neurologic Neurologic: Denies headache(s) Psychiatric Psychiatric: Denies anxiety Endocrine Endocrinology: Denies cold intolerance Hematologic/Lymphatic Hematologic/Lymphatic: Reports none Allergic/Immunologic Allergic/Immunologic ED: Denies mouth swelling, tongue swelling or urticaria EXAM Physical Exam Narrative Exam Narrative: 34-year-old female sitting upright in bed. Vital signs are stable. She does not look septic or toxic. H EENT exam pupils round react light. No trauma. Dry mucous membranes. Neck nontender no lymphadenopathy. Lungs clear to auscultation bilaterally. Heart tachycardic rate about 110 no murmur. Chest wall ribs nontender. Abdomen soft nontender. No peritoneal signs. Nondistended. Moving all 4 extremities. 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 Dorsi plantarflexion intact. Back nontender. Neurologically she is awake alert. Answering questions following commands. Const Vital Signs: 08/18/24 17:09 08/18/24 17:11 08/18/24 18:11 Temperature 98.9 F 98 F 97.6 F L Temperature Source Temporal Oral Temporal Pulse Rate 108 H 110 H 96 Respiratory Rate 18 16 19 H Blood Pressure 133/73 H 130/99 H 132/87 H Blood Pressure Mean 93 109 102 Pulse Ox 96 96 96 Oxygen Delivery Method Room Air Room Air 08/18/24 18:38 08/18/24 18:45 08/18/24 18:45 Temperature Temperature Source Pulse Rate 97 93 Respiratory Rate 18 19 H Blood Pressure 132/70 H 132/70 H Blood Pressure Mean 87 87 Pulse Ox Oxygen Delivery Method 08/18/24 19:00 08/18/24 19:00 08/18/24 19:15 Temperature 99.7 F H Temperature Source Oral Pulse Rate 98 95 95 Respiratory Rate 20 H 23 H 22 H Blood Pressure 134/78 H 132/70 H 137/70 H Blood Pressure Mean 96 88 88 Pulse Ox 94 Oxygen Delivery Method 08/18/24 19:30 08/18/24 19:34 08/18/24 19:45 Temperature 99.7 F H Temperature Source Oral Pulse Rate 98 98 99 Respiratory Rate 24 H 22 H 25 H Blood Pressure 133/74 H 133/74 H 134/78 H Blood Pressure Mean 91 93 93 Pulse Ox 94 94 Oxygen Delivery Method 08/18/24 20:00 08/18/24 20:01 08/18/24 20:15 Temperature Temperature Source Pulse Rate 101 H 106 H 100 Respiratory Rate 23 H 20 H 24 H Blood Pressure 126/56 H 126/56 H 115/61 Blood Pressure Mean 72 79 77 Pulse Ox 93 93 92 Oxygen Delivery Method Room Air 08/18/24 20:30 08/18/24 20:45 08/18/24 21:09 Temperature Temperature Source Pulse Rate 102 H 102 H Respiratory Rate 24 H 22 H Blood Pressure 122/68 H 134/80 H Blood Pressure Mean 82 94 Pulse Ox 91 92 92 Oxygen Delivery Method 08/18/24 21:15 Temperature Temperature Source Pulse Rate 107 H Respiratory Rate 26 H Blood Pressure Blood Pressure Mean Pulse Ox 92 Oxygen Delivery Method Positive well nourished and well developed; Negative for cachectic, contractures or unkempt General Appearance ED: well developed and NAD; Negative for unkempt, cachectic, contractures, cyanotic, diaphoretic or pallor Nutritional Appearance: Negative for cachectic HEENT Reports dry mucous membranes; Denies moist mucous membranes Negative for trauma or tenderness Mouth ED: Yes dry mucous membranes Mouth: dry mucous membranes Eyes PERRL and EOMs intact bilaterally General Eye ED: Negative for pale conjunctiva or scleral icterus Neck no lymphadenopathy, supple and no JVD General: Negative for tenderness Chest Wall inspection of chest normal and palpation of chest normal Resp normal respiratory effort and clear to auscultation bilaterally Effort and Inspection: Negative for retractions Auscultation: Negative for rales, rhonchi, wheezes or diminished lung sounds Cardio regular rhythm, S1 normal heart sound, S2 normal heart sound and no murmurs; Negative for regular rate Rate: tachycardic GI normal to inspection, nondistended, normoactive bowel sounds, non-tender, non-distended and no masses Inspection: Negative for abdominal distention Palpation: soft; Negative for tender, guarding or rebound tenderness present Back/Spine no CVA tenderness General Back: Negative for CVA tenderness Cervical Spine: Negative for cervical spine tenderness Thoracic Spine / Upper Back: Negative for thoracic spinal tenderness or paraspinal muscle tenderness Lumbar Spine / Lower Back: Negative for lumbar spinal tenderness Extremity normal to inspection General Extremety ED: Negative for edema or tenderness General Extremity: Negative for edema Neuro oriented x3 and CN's II-XII intact bilaterally Sensorium / Orientation: alert; Negative for orientation impaired, lethargic or stuporous Motor Exam: general weakness Psych mental status grossly normal Appearance: Negative for unkempt Attitude: No agitated Skin no rashes or lesions noted and no wounds General Skin Exam: Negative for jaundice or pallor Rashes: No rashes noted Trauma: Negative for abrasion Wounds: Negative for wounds noted MDM MDM MDM Narrative Medical decision making narrative: 54-year-old female getting chemotherapy for pancreatic cancer with mets feels generally weak. Screening labs to be obtained. Consider infection, dehydration, etc... Zofran for nausea. A liter normal saline for clinical dehydration. Repeat exam patient is doing well at 10:15 PM. She did however test results. Her white count elevated out of a specific source. She currently does not have a fever. She has had elevated white counts before. I have no reason to start her on antibiotics at this time. She is comfortable being discharged home. She has been able to hold down p.o. fluids. She will follow-up with her primary care physician or her oncologist. She knows to return if feeling worse. She has Zofran at home for nausea. History & Record Review Discussion w/independent historian: Patient Additional record(s) reviewed:: Prior outpatient record, Prior ED visit and Prior labs Lab Data Attestation: I reviewed the patient's lab results. Lab results narrative: COVID, flu RSV negative. CBC shows a white count 18.1. H&H 13 and 38. Platelets 49. Electrolytes show sodium 131. Gap 14. BUN of 8 creatinine 0.6. Glucose of 2 90. Liver enzymes show an alk phos of 331. Urinalysis is negative. No white or red cells. No nitrates nor bacteria. Labs: Laboratory Results - last 24 hr 08/18/24 18:28 WBC 18.1 H RBC 4.49 Hgb 13.3 Hct 38.0 MCV 84.6 MCH 29.6 MCHC 35.0 RDW Std Deviation 49.4 H RDW Coeff of Fareed 16.0 H Plt Count 489 H MPV 10.4 Immature Gran % (Auto) 0.600 Neut % (Auto) 80.4 H Lymph % (Auto) 6.0 L [place] % (Auto) 12.5 H Eos % (Auto) 0.1 Baso % (Auto) 0.4 Absolute Neuts (auto) 14.5 H Absolute Lymphs (auto) 1.09 Nucleated RBC % 0 Differential Comment SEE COMMENT Diff Path Review May foll Platelet Estimate SLT INC RBC Morphology N CHROM Anisocytosis RARE Microcytosis RARE Sodium 131 L Potassium 4.5 Chloride 93 L Carbon Dioxide 24.7 Anion Gap 14 BUN 8 Creatinine 0.61 L Estim Creat Clear Calc 98.65 Est GFR (MDRD) Non-Af 106 BUN/Creatinine Ratio 13.8 Glucose 290 H Calcium 9.2 Total Bilirubin 0.58 AST 104 H ALT 23 Alkaline Phosphatase 331 H Total Protein 6.9 Albumin 3.7 Globulin 3.2 Albumin/Globulin Ratio 1.1 Urine Color Yellow Urine Clarity Sl. Cloudy Urine pH 6.0 Ur Specific [place] 1.020 Urine Protein 30 H Urine Glucose (UA) 1000 H Urine Ketones 50 H Urine Occult Blood 10 H Urine Nitrite Negative Urine Bilirubin 1 H Urine Urobilinogen 4 H Ur Leukocyte Esterase 25 H Urine RBC 0-5 SEEN Urine WBC 0 SEEN Ur Squamous Epith Cells 0-5 SEEN Ur Transition Epith Cell 0-5 SEEN Urine Bacteria 0 SEEN Urine Mucus 0 SEEN Radiography Chest X-Ray - ED: 2 View, Read by ED Physician, Normal, Heart, Lungs, Mediastinum, Bony Structures, No Acute Disease and Chronic Changes Diagnostic Testing: Clinical Impression(s) from Imaging Studies Chest X-Ray 08/18/24 18:19 IMPRESSION: No evidence of acute disease. Reading Location: [facility] Chest x-ray, 2 views, AP and lateral, interpreted by myself and radiologist shows no acute abnormality. Chronic changes. Normal cardiac silhouette. Rhythm Strip Rhythm Strip: Sinus Rhythm Rate: 97 Ectopy: None EKG Initial EKG: Attestation: I personally reviewed and interpreted this EKG as follows: Interpretation: Sinus Rhythm and No Acute Injury Pattern Discharge Plan Triage Chief Complaint: Dizziness ED Provider: Randall Pendleton Dx/Rx/DC Orders Clinical Impression: Generalized weakness, Leukocytosis, Malignant neoplasm of pancreas metastatic to liver Instructions: ED Weakness Uncertain Cause Prescriptions: No Action albuterol sulfate [Ventolin HFA] 1 INHALER inhaler 2 puff inhalation 4X/DAY PRN PRN (Reason: Shortness Of Breath) Patient Comments: SHORTNESS OF BREATH loratadine [Allergy Relief (loratadine)] 10 MG tablet 10 mg PO DAILY Patient Comments: ALLERGIES atorvastatin 20 MG tablet 20 mg PO QHS thyroid (pork) [Beverly Thyroid] 30 MG tablet 30 mg PO DAILY pantoprazole 40 MG tablet 40 mg PO BID alogliptin 25 MG tablet 25 mg PO DAILY cholecalciferol (vitamin D3) 5,000 UNIT capsule 5,000 unit PO DAILY insulin glargine 100 UNIT/ML insulin pen 62 unit subcut QHS buprenorphine [Butrans] 5 mcg/hour patch weekly 1 patch transdermal Q7D Diabetic Tussin DM 10-200 mg/5 mL liquid 5 ml PO QHS Patient Comments: [NO ORIGINAL SIG] ascorbic acid (vitamin C) [Vitamin C] 500 mg tablet 500 mg PO DAILY cholestyramine (with sugar) 4 gram powder in packet 1 ea PO DAILY gabapentin 300 mg capsule 300 mg PO TID insulin aspart U-100 100 unit/mL (3 mL) insulin pen 1 sliding scale dose SUBCUT TID Patient Comments: [NO ORIGINAL SIG] levothyroxine 125 mcg tablet 125 mcg PO DAILY Lactobacillus acidoph-L.bulgar 1 million cell tablet 2 tab PO DAILY lidocaine 5 % adhesive patch,medicated 1 patch topical DAILY Zenpep 40,000-126,000- 168,000 unit capsule,delayed release(DR/EC) 2 cap PO BID Primary Care Provider: Goyo Beckett Referrals: Goyo Beckett DO [Primary Care Provider] - 1-2 Days if not improving Carlos Caldera DO [Med Staff - Active Staff] - 1-2 Days if not improving Activity Restrictions/Additional Instructions: Plenty of fluids and rest. Your home Zofran for nausea. Follow-up with your primary care physician or your oncologist if you do not feel like you are improving. Return if you are feeling worse. Print Language: Italian Disposition Disposition: Home, Self Care
[2024-08-18] MEDS: 0.9% Normal Saline (1000mL) 1,000 ML 1000 ML IV (18:34)
[2024-08-18] MEDS: Ondansetron 4 MG/2 ML Vial IV (18:34)
[2024-08-18 18:40] LABS: Bacteria 0 SEEN /hpf (None Seen); Mucous, Urine 0 SEEN /hpf (<or=2+); White Blood Cells 0 SEEN /hpf (0-5)
[2024-08-18 18:43] LABS: Color, Urine Yellow (Yellow); Glucose, Dipstick 1000 mg/dl (Normal); Ketone-Dipstick 50 mg/dl (Negative); Leukocyte Esterase-Dipstick 25 /ul (Negative); Nitrite-Dipstick Negative (Negative); Occult Blood-Urine 10 /ul (Negative); Protein-Dipstick 30 mg/dl (Negative); Urine Clarity Sl. Cloudy (Clear); Urine Urobilinogen 4 mg/dl (Normal)
[2024-08-18 18:47] LABS: Absolute Lymphocyte Count 1.09 X10^3/uL (0.83-4.51); Absolute Neutrophil Count 14.5 X10^3/uL (2.0-7.7); Basophil# 0.08 X10^3/uL; Basophil% 0.4 % (0-1); Eosinophil# 0.01 X10^3/uL; Eosinophils% 0.1 % (0-5); Hemoglobin 13.3 g/dL (12.0-15.0); Lymphocyte # 1.09 X10^3/ul (0.83-4.51); Mean Corpuscular Hgb 29.6 pg (27.0-32.0); Mean Corpuscular Volume 84.6 fL (81-99); Mean Platelet Vol. 10.4 fl (6.2-12.0); Monocyte# 2.26 X10^3/uL; Monocyte% 12.5 % (0-10); NRBC Flagged by Analyzer 0 % (0-5); Neutrophil # 14.53 X10^3/uL (2.7-7.7); Neutrophil % 80.4 % (47-70); POSITIVE DIFFERENTIAL YES; POSITIVE MORPHOLOGY YES; Platelet Count 489 K/mm3 (150-450); RBC Distribution Width SD 49.4 fl (35.1-43.9); Red Blood Count 4.49 M/mm3 (4.2-5.4); White Blood Count 18.1 K/mm3 (4.4-11.0)
[2024-08-18 18:52] LABS: Differential Indicated SCAN CRITERIA MET
[2024-08-18 18:56] LABS: Urine Bilirubin Dipstick 1 mg/dL (Negative)
[2024-08-18 19:12] LABS: Red Blood Cells-Urine 0-5 SEEN /hpf (0-5); Squamous Epithelial Cells - UA 0-5 SEEN /hpf (5-10); Transitional Epithelial - Ur 0-5 SEEN /hpf (0-5)
[2024-08-18 19:16] LABS: ALB/GLOB Ratio 1.1 RATIO (0.9-2.4); AST(SGOT) 104 U/L (<=31); Alanine Aminotransfer ALT/SGPT 23 U/L (<=34); Albumin, Serum 3.7 g/dL (3.5-5.0); Alkaline Phosphatase 331 U/L (35-104); Anion Gap 14 (5-15); BUN 8 mg/dL (4-19); BUN/Creat Ratio 13.8 RATIO (10-20); Calcium,Total 9.2 mg/dL (7.6-11.0); Carbon Dioxide 24.7 mmol/L (21.0-32.0); Chloride 93 mmol/L (98-108); Creatinine, Serum 0.61 mg/dL (0.70-1.20); EST Glomerular Filtration Rate 106 (>60); Estimated Creatinine Clearance 98.65 ml/min (50-250); Globulin 3.2 g/dL (2.2-4.2); Glucose 290 mg/dL (70-99); Potassium 4.5 mmol/L (3.3-5.1); Protein, Total 6.9 g/dL (5.9-8.4); Sodium Level 131 mmol/L (133-145); Total Bilirubin 0.58 mg/dL (0.00-1.30)
[2024-08-18 19:19] LABS: Anisocytosis RARE; Microcytosis RARE; Platelet Estimate SLT INC (ADEQ); Red Cell Morphology N CHROM NORMAL (NORM C&C)
[2024-08-18 19:20] LABS: Pathologist Review May foll
== END 2024-08-18 22:36 | disposition home or self-care (01) ==
PROVIDERS: Emergency Provider Emergency Medicine; PCP Student in an Organized Health Care Education/Training Program; Visit Provider Emergency Medicine
DX: R53.1 Weakness (principal); C78.7 Secondary malignant neoplasm of liver and intrahepatic bile duct; C79.51 Secondary malignant neoplasm of bone; C25.9 Malignant neoplasm of pancreas, unspecified; J44.9 Chronic obstructive pulmonary disease, unspecified; E11.9 Type 2 diabetes mellitus without complications; Z79.4 Long term (current) use of insulin; D72.829 Elevated white blood cell count, unspecified; E86.0 Dehydration; I10 Essential (primary) hypertension; E03.9 Hypothyroidism, unspecified; E55.9 Vitamin D deficiency, unspecified; E78.5 Hyperlipidemia, unspecified; K21.9 Gastro-esophageal reflux disease without esophagitis; F17.210 Nicotine dependence, cigarettes, uncomplicated; Z88.0 Allergy status to penicillin; Z90.49 Acquired absence of other specified parts of digestive tract; Z90.81 Acquired absence of spleen; Z79.890 Hormone replacement therapy; Z79.899 Other long term (current) drug therapy
CPT/HCPCS: 71046; 80053; 81001; 85025; 87631; 93005; 96361; 96374; 99284; A4216; J2405

== ENCOUNTER 2024-12-01 23:06 | Emergency (ER) | payer MEDICAID, SELFPAY ==
[2024-12-01 23:07] VITALS: BP 141/64; PULSE 108; RESP 15; TEMP 37.3; O2SAT 97; BMI 26.4
--- NOTE | 2024-12-01 23:49 | RAD_ITS ---
PROCEDURE: CHEST PA AND LATERAL 12/02/2024 REASON FOR EXAM: DYSPNEA TECHNIQUE: CHEST PA AND LATERAL COMPARISON: 08/18/2024 FINDINGS: There are faint bilateral perihilar and lower lung zones infiltrates and minimal bilateral pleural effusion. Normal cardiac size and aortic calcifications are seen. No pneumothorax. No acute rib abnormalities. RAD/Chest PA and Lateral IMPRESSION: Faint bilateral perihilar and lower lung zones infiltrates and minimal bilatera l pleural effusion, new as compared, advise follow up. Reading [facility] [id number]
[2024-12-02 00:22] LABS: Hematocrit 30.7 % (37-47); Hemoglobin 10.2 g/dL (12.0-15.0); Immature Granulocytes Count 0.290 X10^3/uL (0.0-0.0); Mean Corp Hgb Conc 33.2 g/dL (32-36); Mean Corpuscular Volume 88.7 fL (81-99); Mean Platelet Vol. 10.3 fl (6.2-12.0); NRBC Flagged by Analyzer 0.3 % (0-5); POSITIVE COUNT YES; RBC Distribution Width CV 18.7 % (11.6-14.6); RBC Distribution Width SD 59.6 fl (35.1-43.9); Red Blood Count 3.46 M/mm3 (4.2-5.4); White Blood Count 11.6 K/mm3 (4.4-11.0)
[2024-12-02 00:27] LABS: Differential Indicated SCAN CRITERIA MET; Platelet Count 831 K/mm3 (150-450)
[2024-12-02 01:23] LABS: Differential Comment SCANNED
[2024-12-02 01:54] LABS: AST(SGOT) 63 U/L (<=31); Alanine Aminotransfer ALT/SGPT 23 U/L (<=34); Albumin, Serum 3.2 g/dL (3.5-5.0); Alkaline Phosphatase 591 U/L (35-104); Anion Gap 14 (5-15); BUN 5 mg/dL (4-19); BUN/Creat Ratio 8.8 RATIO (10-20); Bilirubin, Direct 0.25 mg/dL (0.00-0.30); Calcium,Total 8.6 mg/dL (7.6-11.0); Carbon Dioxide 22.8 mmol/L (21.0-32.0); Chloride 97 mmol/L (98-108); Estimated Creatinine Clearance 108.12 ml/min (50-250); Globulin 3.4 g/dL (2.2-4.2); Glucose 445 mg/dL (70-99); Potassium 3.9 mmol/L (3.3-5.1); Pro- Brain NATRIURETIC PEPTIDE 188 pg/mL (<=900)
--- NOTE | 2024-12-02 02:31 | EX.ED.DYSGE1 ---
HPI History of Present Illness Chief Complaint: Edema Informant: patient and spouse/S.O. Narrative Narrative: Patient is a 54-year-old female with past medical history of hypertension hyperlipidemia hypothyroidism and liver cancer. She states she has been having swelling in both of her legs for quite some time. She denies any history of congestive heart failure. She states that she has been taking all of her medications as directed but she has been feeling more of a burning sensation in her legs now. She denies any cough or shortness of breath or difficulty sleeping. The swelling has been persistent she was concern for heart and therefore comes in for evaluation [facility] Medical History Carcinoid syndrome Anxiety Cholangitis Dysphagia Chronic dental infection Heart murmur Malignant neoplasm of pancreas Vitamin D deficiency Hypertension Hypothyroidism Hyperlipidemia Liver cirrhosis secondary to nonalcoholic steatohepatitis (CHRISTENSEN) Non-allergic rhinitis GERD (gastroesophageal reflux disease) COPD (chronic obstructive pulmonary disease) Asthma Nontoxic multinodular goiter Duodenal ulcer Diabetes mellitus Liver cancer Pancreatic cancer Home Medications ?Medication ?Instructions ?Recorded ?Last Taken ?Type albuterol sulfate 90 mcg/actuation 2 puff inhalation 4X/DAY PRN PRN 03/24/13 04/17/18 History aerosol inhaler (Ventolin HFA) Shortness Of Breath loratadine 10 mg tablet (Allergy 10 mg PO DAILY 03/24/13 04/17/18 History Relief (loratadine)) atorvastatin 20 mg tablet 20 mg PO QHS 02/20/14 04/17/18 History thyroid (pork) 30 mg tablet 30 mg PO DAILY 09/27/17 04/17/18 History (Dalbo Thyroid) alogliptin 25 mg tablet 25 mg PO DAILY 08/25/18 Unknown History pantoprazole 40 mg tablet,delayed 40 mg PO BID 08/25/18 Unknown History release cholecalciferol (vitamin D3) 125 5,000 unit PO DAILY 05/20/19 Unknown History mcg (5,000 unit) capsule insulin glargine 100 unit/mL (3 62 unit subcut QHS 05/20/19 Unknown History mL) subcutaneous pen buprenorphine 5 mcg/hour weekly 1 patch transdermal Q7D 07/07/24 Unknown History transdermal patch (Butrans) Lactobacillus acidoph-L.bulgaricus 2 tab PO DAILY 08/18/24 Unknown History 1 million cell tablet ascorbic acid (vitamin C) 500 mg 500 mg PO DAILY 08/18/24 Unknown History tablet (Vitamin C) cholestyramine (with sugar) 4 gram 1 ea PO DAILY 08/18/24 Unknown History powder for susp in a packet dextromethorphan-guaifenesin 10 5 ml PO QHS 08/18/24 Unknown History mg-200 mg/5 mL oral liquid (Diabetic Tussin DM) gabapentin 300 mg capsule 300 mg PO TID 08/18/24 Unknown History insulin aspart U-100 100 unit/mL 1 sliding scale dose subcut TID 08/18/24 Unknown History (3 mL) subcutaneous pen levothyroxine 125 mcg tablet 125 mcg PO DAILY 08/18/24 Unknown History lidocaine 5 % topical patch 1 patch topical DAILY 08/18/24 Unknown History hbkxsh-karggqvg-esyfeul 2 cap PO BID 08/18/24 Unknown History 40,000-126,000-168,000 unit capsule, delay rel (Zenpep) Allergy/AdvReac Type Severity Reaction Status Date / Time acetaminophen (From Percocet) Allergy Shortness Verified 07/07/24 19:29 of breath adhesive Allergy Shortness Verified 07/07/24 19:29 of breath amoxicillin (Amoxicillin) Allergy Shortness Verified 07/07/24 19:29 of breath codeine Allergy Shortness Verified 07/07/24 19:29 of breath fentanyl Allergy UNRESPONSIV Verified 07/07/24 19:29 E metformin Allergy Other Verified 07/07/24 19:29 morphine Allergy Shortness Verified 07/07/24 19:29 of breath naproxen (From Naprosyn) Allergy Rash Verified 07/07/24 19:29 oxycodone HCl (From Percocet) Allergy Shortness Verified 07/07/24 19:29 of breath propoxyphene HCl (From Allergy Shortness Verified 07/07/24 19:29 Darvon) of breath propoxyphene napsylate (From Allergy Shortness Verified 07/07/24 19:29 Darvocet-N 100) of breath atomoxetine HCl (From AdvReac Other Verified 07/07/24 19:29 Strattera) levothyroxine sodium (From AdvReac Other Verified 07/07/24 19:29 Synthroid) CLINDAMYCIN Allergy SEIZURES Uncoded 02/26/23 00:29 Family History no significant family his Surgical History Hx of colectomy H/O splenectomy Social History housing: house Smoking Status: Current every day smoker tobacco type: cigarettes ROS ROS ED Constitutional Constitutional ED: Denies chills or fever(s) ENT ENT ED: Denies sore throat Cardiovascular Cardiovascular: Denies chest pain Respiratory/Chest Respiratory/Chest: Denies cough or dyspnea Gastrointestinal Gastrointestinal: Reports abdominal pain and nausea; Denies diarrhea or vomiting Genitourinary Genitourinary ED: Denies dysuria Musculoskeletal Musculoskeletal: Reports other Details: Positive bilateral leg swelling ; Denies myalgias Integumentary Denies rash Neurologic Neurologic: Denies headache(s) Hematologic/Lymphatic Hematologic/Lymphatic: Denies easy bleeding or easy bruising EXAM Physical Exam Const Vital Signs: 12/01/24 23:07 Temperature 99.1 F Temperature Source Oral Pulse Rate 108 H Respiratory Rate 15 Blood Pressure 141/64 H Blood Pressure Mean 89 Pulse Ox 97 Oxygen Delivery Method Room Air Positive well nourished and well developed General Appearance ED: well developed HEENT HEENT Narrative: Normocephalic atraumatic No tongue or lip swelling; no oral lesions no airway edema or compromise Eyes PERRL and EOMs intact bilaterally General Eye ED: Negative for scleral icterus Neck supple and no JVD Resp normal respiratory effort and clear to auscultation bilaterally Resp Narrative: Breath sounds are diminished throughout with faint expiratory wheeze and rhonchi in the bilateral bases consistent with history of smoking/COPD but no obvious crackles to suggest volume overload No signs of respiratory distress Cardio regular rate and regular rhythm GI non-distended GI Narrative: Abdomen is soft with slight distention. There is mild pain on palpation along the right upper abdomen. Faint fluid wave is noted. No voluntary guarding or rigidity or pulsatile mass Auscultation: hypoactive bowel sounds Palpation: soft Extremity Extremity Narrative: Bilateral lower extremities are neurovascularly intact There is +2-3 pitting edema to the bilateral lower extremities that is equal and symmetric extending from the dorsum of the foot to just below the knee Negative Homans' sign bilaterally Neuro oriented x3, CN's II-XII intact bilaterally and no sensory deficits noted Sensorium / Orientation: alert Motor Exam: strength 5/5 throughout Psych mental status grossly normal Skin no rashes or lesions noted and no wounds General Skin Exam: Negative for jaundice MDM MDM MDM Narrative Medical decision making narrative: Patient arrived to the ER with stable vitals and in no acute respiratory distress. She reported persistent leg swelling for quite some time but now high concern for potential CHF as the cause. However the patient has a known history of liver cancer and this history and exam would indicate that ascites is causing peripheral edema or she could have low protein or albumin levels. She had no calf tenderness no tachypnea no pleuritic chest pain so therefore I have low concern for DVT or PE. In order to rule out congestive heart failure I did elect to perform a chest x-ray as well as basic laboratory studies. The patient's proBNP is normal going against CHF. The patient's protein and albumin levels are low which could lead to third spacing and peripheral edema as well. The chest x-ray displayed new bibasilar pleural effusions which were minimal in nature and there is potential for developing infiltrate/pneumonia. The patient does not have a fever she states she is not coughing or short of breath and she also reports she is currently on antibiotics. Therefore this interpretation of the chest x-ray does not clinically correlate and as she is currently on antibiotics I do not feel the need to change or add to them as the interpretation of developing pneumonia does not correlate with her physical exam. On reevaluation the patient's vitals are stable she is not in respiratory distress her history and exam is consistent with her liver cancer causing third spacing and ascites causing her leg swelling but she does not have findings of CHF or acute kidney injury. Therefore there is no need for admission and she is otherwise safe for discharge with outpatient follow-up History & Record Review Discussion w/independent historian: Patient and Significant other Lab Data Attestation: I reviewed the patient's lab results. Labs: Laboratory Results - last 24 hr 12/02/24 00:00 WBC 11.6 H RBC 3.46 L Hgb 10.2 L Hct 30.7 L MCV 88.7 MCH 29.5 MCHC 33.2 RDW Std Deviation 59.6 H RDW Coeff of Fareed 18.7 H Plt Count 831 H* MPV 10.3 Immature Gran % (Auto) 2.500 H Neut % (Auto) 76.3 H Lymph % (Auto) 10.2 L Benzie % (Auto) 10.1 H Eos % (Auto) 0.4 Baso % (Auto) 0.5 Absolute Neuts (auto) 8.9 H Absolute Lymphs (auto) 1.19 Nucleated RBC % 0.3 Differential Comment SCANNED Diff Path Review September Sodium 134 Potassium 3.9 Chloride 97 L Carbon Dioxide 22.8 Anion Gap 14 BUN 5 Creatinine 0.57 L Estim Creat Clear Calc 108.12 Est GFR (MDRD) Non-Af 108 BUN/Creatinine Ratio 8.8 L Glucose 445 H Calcium 8.6 Total Bilirubin 0.35 Direct Bilirubin 0.25 AST 63 H ALT 23 Alkaline Phosphatase 591 H NT pro BNP II 188 Total Protein 6.6 Albumin 3.2 L Globulin 3.4 Radiography Diagnostic Testing: Clinical Impression(s) from Imaging Studies Chest X-Ray 12/01/24 23:49 IMPRESSION: Faint bilateral perihilar and lower lung zones infiltrates and minimal bilateral pleural effusion, new as compared, advise follow up. Reading Location: [place] [id number] Chest x-ray as interpreted by emergency medicine physician reveals bibasilar atelectasis without acute infiltrate or pneumothorax Discharge Plan Triage Chief Complaint: Edema ED Provider: Ben Bronson Dx/Rx/DC Orders Clinical Impression: Peripheral edema, Liver cancer, Hypertension, Hyperlipidemia, Hypothyroidism Instructions: ED Peripheral Edema, Bilateral Prescriptions: No Action albuterol sulfate [Ventolin HFA] 1 INHALER inhaler 2 puff inhalation 4X/DAY PRN PRN (Reason: Shortness Of Breath) Patient Comments: SHORTNESS OF BREATH loratadine [Allergy Relief (loratadine)] 10 MG tablet 10 mg PO DAILY Patient Comments: ALLERGIES atorvastatin 20 MG tablet 20 mg PO QHS thyroid (pork) [Dalbo Thyroid] 30 MG tablet 30 mg PO DAILY pantoprazole 40 MG tablet 40 mg PO BID alogliptin 25 MG tablet 25 mg PO DAILY cholecalciferol (vitamin D3) 5,000 UNIT capsule 5,000 unit PO DAILY insulin glargine 100 UNIT/ML insulin pen 62 unit subcut QHS buprenorphine [Butrans] 5 mcg/hour patch weekly 1 patch transdermal Q7D Diabetic Tussin DM 10-200 mg/5 mL liquid 5 ml PO QHS Patient Comments: [NO ORIGINAL SIG] ascorbic acid (vitamin C) [Vitamin C] 500 mg tablet 500 mg PO DAILY cholestyramine (with sugar) 4 gram powder in packet 1 ea PO DAILY gabapentin 300 mg capsule 300 mg PO TID insulin aspart U-100 100 unit/mL (3 mL) insulin pen 1 sliding scale dose SUBCUT TID Patient Comments: [NO ORIGINAL SIG] levothyroxine 125 mcg tablet 125 mcg PO DAILY Lactobacillus acidoph-L.bulgar 1 million cell tablet 2 tab PO DAILY lidocaine 5 % adhesive patch,medicated 1 patch topical DAILY Zenpep 40,000-126,000- 168,000 unit capsule,delayed release(DR/EC) 2 cap PO BID Primary Care Provider: Goyo Beckett Referrals: Goyo Beckett DO [Primary Care Provider] - Activity Restrictions/Additional Instructions: Your workup shows no sign of kidney damage or congestive heart failure indicating your leg swelling is due to your underlying history of liver cancer. Please wear compression stockings to help with the swelling and continue all of your other medications as directed by your doctor. Return to the hospital should you have any further concerns Print Language: Sammarinese Disposition Disposition: Home, Self Care Discharge Date/Time: 12/02/24 02:38
[2024-12-02 02:38] VITALS: BP 136/70; PULSE 99; RESP 16; TEMP 36.9; O2SAT 93
== END 2024-12-02 02:38 | disposition home or self-care (01) ==
PROVIDERS: Emergency Provider Emergency Medicine; PCP Student in an Organized Health Care Education/Training Program; Visit Provider Emergency Medicine
DX: R60.0 Localized edema (principal); C22.9 Malignant neoplasm of liver, not specified as primary or secondary; J44.9 Chronic obstructive pulmonary disease, unspecified; E11.9 Type 2 diabetes mellitus without complications; Z79.4 Long term (current) use of insulin; I10 Essential (primary) hypertension; E78.5 Hyperlipidemia, unspecified; E03.9 Hypothyroidism, unspecified; F41.9 Anxiety disorder, unspecified; E55.9 Vitamin D deficiency, unspecified; K21.9 Gastro-esophageal reflux disease without esophagitis; K75.81 Nonalcoholic steatohepatitis (NASH); F17.210 Nicotine dependence, cigarettes, uncomplicated; Z87.19 Personal history of other diseases of the digestive system; Z79.899 Other long term (current) drug therapy; Z79.890 Hormone replacement therapy
CPT/HCPCS: 36415; 71046; 80048; 80076; 83880; 85025; 99282; A4216

== ENCOUNTER 2025-01-24 15:01 | Emergency (ER) | payer MEDICAID, SELFPAY ==
[2025-01-24] VITALS (7 sets, daily range): BP systolic 106–121; BP diastolic 54–67; PULSE 88–95; RESP 18; TEMP 36.6; O2SAT 92–97; BMI 23.3
--- NOTE | 2025-01-24 15:49 | RAD_ITS ---
PROCEDURE: WRIST MIN 3 VIEWS 01/24/2025 REASON FOR EXAM: FALL TECHNIQUE: Procedure Code: RADWR Modality: DX Procedure: WRIST MIN 3 VIEWS COMPARISON: none RAD/Wrist min 3 Views IMPRESSION: No acute fracture or dislocations. Moderate scattered degenerative changes. No acute soft tissue abnormalities. No radiographic foreign body. Reading Location: [facility]
--- NOTE | 2025-01-24 17:44 | CT_ITS ---
PROCEDURE: CT SPINE LUMBAR WITHOUT CONTRAST 01/24/2025 REASON FOR EXAM: FALL, PAIN, SWELLING, HX CANCER TECHNIQUE: Procedure Code: CTSPL Modality: CT Procedure: SPINE LUMBAR WITHOUT CONTRAST Coronal and Sagittal reconstruction series were provided. One or more dose reduction techniques were used (e.g., Automated exposure control, adjustment of the mA and/or kV according to patient size, use of iterative reconstruction technique COMPARISON: None available. RADIATION DOSE SUMMARY: CTDlvol: 16.01 mGy DLP: 613.24 mGycm FINDINGS: No acute fracture or subluxation. Alignment is anatomic. Vertebral body heights are preserved. Minimal degenerative changes are present, with mild dorsal disc bulging at multiple levels but no evidence of significant spinal canal or neural foraminal narrowing on either side. There is partially imaged ill-defined heterogeneous sclerotic lesion in the right iliac bone with irregular periosteal reaction, likely metastatic. No other focal lytic or blastic lesion appreciated. Nonspecific mild generalized subcutaneous edema. Several small densely calcified lesions in the visualized liver. Advanced aortoiliac atherosclerotic calcifications. Circumferential thickening of the partially imaged urinary bladder. Nonspecific small volume ascites within the pelvis. CT/Spine Lumbar without Contrast IMPRESSION: 1. No acute lumbosacral spine fracture or malalignment. Minimal spondylotic abdirashid nges. 2. Ill-defined heterogeneous sclerotic lesion with irregular cortex/periosteal reaction involving the right iliac bone, presumably metastatic. No other osseous lesion appreciated. 3. Circumferential thickening of the imaged urinary bladder; correlate clinical ly for possible cystitis. 4. Nonspecific small volume pelvic ascites, and generalized subcutaneous edema. Reading Location: [id number]
--- NOTE | 2025-01-24 17:45 | ED.VIS.FALL ---
HPI HPI - Fall History of Present Illness Chief Complaint: Fall Informant: patient and spouse/S.O. Narrative Narrative: 54-year-old female had a minor fall today, injuring her right elbow and proximal forearm. She has cancer with metastases, the patient and significant other are fairly poor informant cannot tell me specifics but they also tell me that she has cancer in her liver as well. Is not undergoing any chemotherapy but she is getting radiation. Today she was there for treatment and when they discussed the fact that she had a minor fall this morning and injured her right upper extremity and the fact that her left lower extremity has been weak and not working correctly for the last 1.5 weeks, radiation oncology referred her here to the ER. She is having some low back pain. She states this was pre-existing before falling today. She denies injuring anything other than her left elbow today. She states she usually is very weak and has to have family member around for assistance frequently, but she did not want to wait because she needed to urinate so she got up and then was too weak to stand down with the left lower leg being weak, she fell. No prodromal symptoms. [facility] Medical History (Updated 01/24/25 @ 23:[address] Garth Naranjo MD) Carcinoid syndrome Anxiety Cholangitis Dysphagia Chronic dental infection Heart murmur Malignant neoplasm of pancreas Vitamin D deficiency Hypertension Hypothyroidism Hyperlipidemia Liver cirrhosis secondary to nonalcoholic steatohepatitis (CHRISTENSEN) Non-allergic rhinitis GERD (gastroesophageal reflux disease) COPD (chronic obstructive pulmonary disease) Asthma Nontoxic multinodular goiter Duodenal ulcer Diabetes mellitus Liver cancer Pancreatic cancer Home Medications ?Medication ?Instructions ?Recorded ?Last Taken ?Type albuterol sulfate 90 mcg/actuation 2 puff inhalation 4X/DAY PRN PRN 03/24/13 04/17/18 History aerosol inhaler (Ventolin HFA) Shortness Of Breath loratadine 10 mg tablet (Allergy 10 mg PO DAILY 03/24/13 04/17/18 History Relief (loratadine)) atorvastatin 20 mg tablet 20 mg PO QHS 02/20/14 04/17/18 History alogliptin 25 mg tablet 25 mg PO DAILY 08/25/18 Unknown History pantoprazole 40 mg tablet,delayed 40 mg PO BID 08/25/18 Unknown History release cholecalciferol (vitamin D3) 125 5,000 unit PO DAILY 05/20/19 Unknown History mcg (5,000 unit) capsule insulin glargine 100 unit/mL (3 62 unit subcut QHS 05/20/19 Unknown History mL) subcutaneous pen buprenorphine 5 mcg/hour weekly 1 patch transdermal Q7D 07/07/24 Unknown History transdermal patch (Butrans) Lactobacillus acidoph-L.bulgaricus 2 tab PO DAILY 08/18/24 Unknown History 1 million cell tablet ascorbic acid (vitamin C) 500 mg 500 mg PO DAILY 08/18/24 Unknown History tablet (Vitamin C) cholestyramine (with sugar) 4 gram 1 ea PO DAILY 08/18/24 Unknown History powder for susp in a packet dextromethorphan-guaifenesin 10 5 ml PO QHS 08/18/24 Unknown History mg-200 mg/5 mL oral liquid (Diabetic Tussin DM) gabapentin 300 mg capsule 300 mg PO TID 08/18/24 Unknown History levothyroxine 125 mcg tablet 125 mcg PO DAILY 08/18/24 Unknown History lidocaine 5 % topical patch 1 patch topical DAILY 08/18/24 Unknown History lkyyzo-gokebvrz-oqkfgiz 2 cap PO BID 08/18/24 Unknown History 40,000-126,000-168,000 unit capsule, delay rel (Zenpep) celecoxib 200 mg capsule 200 mg PO BID PRN PRN pain 01/24/25 Unknown History cholecalciferol (vitamin D3) 50 50 mcg PO DAILY 01/24/25 Unknown History mcg (2,000 unit) capsule diphenoxylate-atropine 2.5 2 tab PO Q6H PRN PRN diarrhea 01/24/25 Unknown History mg-0.025 mg tablet emollient combination no.119 1 applic topical PRN 01/24/25 Unknown History (Eucerin Advanced Repair topical cream) glycopyrrolate 1 mg tablet PO 01/24/25 Unknown History insulin lispro 100 unit/mL 1 sliding scale dose subcut TIDCM 01/24/25 Unknown History subcutaneous pen metronidazole 500 mg tablet 500 mg PO TID 01/24/25 Unknown History nystatin 100,000 unit/gram topical 1 applic topical BID 01/24/25 Unknown History powder olanzapine 2.5 mg tablet 2.5 mg PO QHS 01/24/25 Unknown History olanzapine 5 mg tablet 5 mg PO QHS 01/24/25 Unknown History ondansetron HCl 8 mg tablet 8 mg PO Q8H PRN PRN nausea/vomiting 01/24/25 Unknown History oxycodone 10 mg tablet 10 mg PO TID PRN 01/24/25 01/23/25 History sulfamethoxazole 800 1 tab PO BID #14 TABLETS 01/24/25 Unknown Rx mg-trimethoprim 160 mg tablet terbinafine HCl 250 mg tablet 250 mg PO DAILY 01/24/25 Unknown History vitamin B complex 1 cap PO Q24H 01/24/25 Unknown History Allergy/AdvReac Type Severity Reaction Status Date / Time acetaminophen (From Percocet) Allergy Shortness Verified 01/24/25 15:05 of breath adhesive Allergy Shortness Verified 01/24/25 15:05 of breath amoxicillin (Amoxicillin) Allergy Shortness Verified 01/24/25 15:05 of breath codeine Allergy Shortness Verified 01/24/25 15:05 of breath fentanyl Allergy UNRESPONSIV Verified 01/24/25 15:05 E metformin Allergy Other Verified 01/24/25 15:05 morphine Allergy Shortness Verified 01/24/25 15:05 of breath naproxen (From Naprosyn) Allergy Rash Verified 01/24/25 15:05 oxycodone HCl (From Percocet) Allergy Shortness Verified 01/24/25 15:05 of breath propoxyphene HCl (From Allergy Shortness Verified 01/24/25 15:05 Darvon) of breath propoxyphene napsylate (From Allergy Shortness Verified 01/24/25 15:05 Darvocet-N 100) of breath atomoxetine HCl (From AdvReac Other Verified 01/24/25 15:05 Strattera) levothyroxine sodium (From AdvReac Other Verified 01/24/25 15:05 Synthroid) CLINDAMYCIN Allergy SEIZURES Uncoded 02/26/23 00:29 Family History (Updated 01/24/25 @ 21:[address] Sachi Saleem MD) Mother Cancer Diabetes Heart disease CVA (cerebral vascular accident) Father Cancer Diabetes Heart disease CVA (cerebral vascular accident) S/P cardiac pacemaker procedure Surgical History (Updated 01/24/25 @ 21:[address] Sachi Saleem MD) History of History of tonsillectomy and adenoidectomy S/P appendectomy History of Whipple procedure History of cholecystectomy Hx of colectomy H/O splenectomy Social History (Updated 01/24/25 @ 21:[address] Sachi Saleem MD) household members: spouse housing: house Smoking Status: Current every day smoker tobacco type: cigarettes alcohol intake: never substance use type: does not use ROS ROS ED Constitutional Constitutional ED: Reports malaise and weakness; Denies chills or fever(s) Eyes Eyes: Denies change in vision or diplopia ENT ENT ED: Denies rhinorrhea or sore throat Cardiovascular Cardiovascular: Denies chest pain or palpitations Respiratory/Chest Respiratory/Chest: Denies cough or dyspnea Gastrointestinal Gastrointestinal: Reports abdominal pain and other Details: Chronic abdominal discomfort nothing new or different ; Denies diarrhea, nausea or vomiting Genitourinary Genitourinary ED: Denies dysuria or hematuria Musculoskeletal Musculoskeletal: Reports back pain and extremity pain; Denies neck pain Integumentary Reports Abrasions; Denies abscess or rash Neurologic Neurologic: Reports weakness; Denies headache(s) or paresthesias Psychiatric Psychiatric: Denies anxiety or suicidal thoughts EXAM Physical Exam Const Vital Signs: 01/24/25 15:01 01/24/25 16:40 01/24/25 17:10 Temperature 97.8 F Temperature Source Oral Pulse Rate 92 88 Respiratory Rate 18 18 Respiratory Effort Normal Respiratory Depth Normal Respiratory Pattern Normal Blood Pressure 106/58 L 106/54 L Blood Pressure Mean 74 71 Pulse Ox 97 92 Oxygen Delivery Method Room Air Room Air Room Air 01/24/25 19:00 01/24/25 20:42 01/24/25 21:00 Temperature 98 F Temperature Source Pulse Rate 93 91 89 Respiratory Rate 18 18 18 Respiratory Effort Respiratory Depth Respiratory Pattern Blood Pressure 116/59 L 113/63 116/58 L Blood Pressure Mean 78 79 77 Pulse Ox 96 94 93 Oxygen Delivery Method Room Air Room Air 01/24/25 23:00 Temperature Temperature Source Pulse Rate 95 Respiratory Rate 18 Respiratory Effort Respiratory Depth Respiratory Pattern Blood Pressure 121/58 H Blood Pressure Mean 79 Pulse Ox 93 Oxygen Delivery Method Room Air Positive well nourished and well developed Constitutional Narrative: Appears weak General Appearance ED: well developed and NAD HEENT Reports moist mucous membranes normocephalic and atraumatic Eyes PERRL and EOMs intact bilaterally Neck full ROM and supple Resp normal respiratory effort and clear to auscultation bilaterally Cardio regular rate, regular rhythm and no murmurs GI non-distended GI Narrative: Right upper quadrant tenderness. No guarding or rebound otherwise benign. Auscultation: normoactive bowel sounds Palpation: soft Back/Spine no CVA tenderness Back/Spine Narrative: She has some mild tenderness in the upper lumbar spine, as well as the lower lumbar and sacral area, there is asymmetric firm bone to the right, and this is tender but overlying skin is normal there is no erythema. General Back: other FROM Extremity Extremity Narrative: Mild tenderness to the right medial and lateral epicondyles, no olecranon process tenderness. Full range of motion, pain with supination and pronation. Full range of motion of the wrist without any tenderness there, full range of motion of the shoulder without any tenderness of their deformities anywhere. There is an abrasion about the posterior aspect of the right elbow which the states is new today from this fall. No other signs of trauma. General Extremety ED: Yes edema; Negative for pulses abnormal General Extremity: edema bilateral lower extremity Details: mild (To mid mantilla bilaterally symmetrically without signs of cellulitis or calf tenderness or palpable cords anywhere); Negative for pulses abnormal Neuro oriented x3, CN's II-XII intact bilaterally and no sensory deficits noted Neuro Narrative: Generalized weakness, worse in the legs than the arms, but worse in the left lower extremity than the right. Intact pulses. Toes downgoing normal reflexes in the right, diminished in the left, the only muscle group that is strong and symmetric is foot dorsiflexion bilaterally. She cannot hold the left lower extremity up against gravity but she can with the right. Sensorium / Orientation: awake and alert Skin no rashes or lesions noted and no wounds MDM MDM MDM Narrative Medical decision making narrative: Labs obtained and the patient appears weak and tired, but she also has focal weakness of her left lower extremity which apparently is new, progressively worsening over the past week. Labs show elevated liver enzymes consistent with history of tumor in her liver according to the patient and her . In discussing more with them concerning her diagnosis, it seems she started with pancreatic cancer and then had a Whipple and then a tumor went to her liver, enlarged, and spread from there to bone. She is not getting chemotherapy just radiation to her hips, and later a tumor on T10 which she has not started yet, she has had some chronic pain there, and my concern is that this may be leading to her left lower extremity weakness, especially if she has tumor extension. Given this, she will probably need an urgent MRI and possible specialist consultation depending on the results of MRI. She is currently receiving her cancer care at [facility]. I asked her about the prognosis, she and her state that they were told that it is good, and therefore they are interested in any and all treatments needed and indicated. Given the abnormal area of swelling, it feels prominent like bone, and pain in her right lumbosacral area, I obtained a CT of it. There is not a large bony prominence there, but there are some abnormalities according to radiology that suggest this may be a metastasis. I reviewed the imaging and report which I agree with. My guess is that this is not related to her left lower extremity weakness since it is diffuse and multiple muscle groups including proximally, suggesting that the T10 lesion may be more the issue especially if it involves cord. I discussed with hospitalist for admission and more advanced imaging, however they declined to admit suggesting that the patient should be transferred to higher level of care that has specialist such as neurosurgery to field the results and she has objective neurologic weakness in the left lower extremity. While waiting to discuss with outside physicians, the patient and family discussed the fact that she has been having foul-smelling urine recently and it looked very cloudy, and they were concerned about a urine infection so we had the patient urinate and indeed it appears opaque and it was sent to the lab and is consistent with infection so she will be started on antibiotics. She does not appear to be septic, but I did send for culture. Meanwhile the [facility] Transfer center called back as a spoke with neurosurgery, the patient was apparently supposed to have a CT of the thoracic spine several weeks ago but never obtained it and they are requesting those images before they accept the patient. Meanwhile they do not have any beds, so I discussed with patient and family that after we obtain CT imaging of the thoracic spine and assuming that [facility] accept her in transfer, she will likely need to be temporarily admitted here until a bed becomes available. She and adamant about not doing this so that she does not miss her morning radiation treatment tomorrow. I explained to them that in my judgment the progressive neurologic weakness of her left lower extremity is more important at this time, and worst-case scenario could lead to paralysis. They understand this, and they signed her out AGAINST MEDICAL ADVICE anyway but are amenable to waiting until the CT thoracic spine is obtained, the IV Rocephin is finished, and I advised them even if they sign out AGAINST MEDICAL ADVICE which both of them have the capacity to do at this time, there are other family members present during all this conversation, that I would still prescribe antibiotics for the urine infection. CT thoracic spine results and final disposition checked out to night physician. History & Record Review Discussion w/independent historian: Patient and Family Lab Data Attestation: I reviewed the patient's lab results. Labs: Laboratory Results - last 24 hr 01/24/25 01/24/25 17:55 22:52 WBC 8.5 RBC 3.23 L Hgb 9.9 L Hct 29.0 L MCV 89.8 MCH 30.7 MCHC 34.1 RDW Std Deviation 74.7 H RDW Coeff of Fareed 24.2 H Plt Count 407 MPV 11.4 Immature Gran % (Auto) 2.500 H Neut % (Auto) 81.5 H Lymph % (Auto) 7.4 L Liberty % (Auto) 8.2 Eos % (Auto) 0.0 Baso % (Auto) 0.4 Absolute Neuts (auto) 6.9 Absolute Lymphs (auto) 0.63 L Nucleated RBC % 0.5 Differential Comment SCANNED Platelet Estimate ADEQUATE Polychromasia 1+ Hypochromasia 1+ Anisocytosis 1+ Target Cells 1+ Sodium 127 L Potassium 4.5 Chloride 91 L Carbon Dioxide 25.0 Anion Gap 12 BUN 10 Creatinine 0.40 L Estim Creat Clear Calc 138.84 Est GFR (MDRD) Non-Af 118 BUN/Creatinine Ratio 24.2 H Glucose 440 H Calcium 10.0 Total Bilirubin 3.89 H AST 255 H ALT 49 H Alkaline Phosphatase 1131 H Total Protein 6.7 Albumin 2.9 L Globulin 3.8 Albumin/Globulin Ratio 0.8 L Urine Color Michelle Urine Clarity Turbid Urine pH 6.0 Ur Specific Grandy 1.025 Urine Protein 30 H Urine Glucose (UA) 100 H Urine Ketones 50 H Urine Occult Blood Negative Urine Nitrite Positive H Urine Bilirubin 6 H Urine Urobilinogen 8 H Ur Leukocyte Esterase 25 H Radiography Diagnostic Testing: Clinical Impression(s) from Imaging Studies Wrist X-Ray 01/24/25 15:49 IMPRESSION: No acute fracture or dislocations. Moderate scattered degenerative changes. No acute soft tissue abnormalities. No radiographic foreign body. Reading Location: [facility] Lumbar Spine CT 01/24/25 17:44 IMPRESSION: 1. No acute lumbosacral spine fracture or malalignment. Minimal spondylotic changes. 2. Ill-defined heterogeneous sclerotic lesion with irregular cortex/periosteal reaction involving the right iliac bone, presumably metastatic. No other osseous lesion appreciated. 3. Circumferential thickening of the imaged urinary bladder; correlate clinically for possible cystitis. 4. Nonspecific small volume pelvic ascites, and generalized subcutaneous edema. Reading Location: [facility] Elbow X-Ray 01/24/25 18:05 IMPRESSION: No acute fracture or dislocation. Reading Location: [facility] Management Discussion w/another healthcare provider: Hospitalist and Supervisor [employer] Discharge Plan Triage Chief Complaint: Fall ED Provider: Garth Naranjo Dx/Rx/DC Orders Clinical Impression: Weakness of left lower extremity, Cancer, metastatic to bone, Hyponatremia, Elevated liver enzymes, UTI (urinary tract infection) Instructions: Bone Metastases, ED Cystitis Female Adult Prescriptions: New sulfamethoxazole-trimethoprim 800-160 mg tablet 1 tab PO BID Qty: 14 0RF No Action albuterol sulfate [Ventolin HFA] 1 INHALER inhaler 2 puff inhalation 4X/DAY PRN PRN (Reason: Shortness Of Breath) Patient Comments: SHORTNESS OF BREATH loratadine [Allergy Relief (loratadine)] 10 MG tablet 10 mg PO DAILY Patient Comments: ALLERGIES atorvastatin 20 MG tablet 20 mg PO QHS pantoprazole 40 MG tablet 40 mg PO BID alogliptin 25 MG tablet 25 mg PO DAILY cholecalciferol (vitamin D3) 5,000 UNIT capsule 5,000 unit PO DAILY insulin glargine 100 UNIT/ML insulin pen 62 unit subcut QHS buprenorphine [Butrans] 5 mcg/hour patch weekly 1 patch transdermal Q7D Diabetic Tussin DM 10-200 mg/5 mL liquid 5 ml PO QHS Patient Comments: [NO ORIGINAL SIG] ascorbic acid (vitamin C) [Vitamin C] 500 mg tablet 500 mg PO DAILY cholestyramine (with sugar) 4 gram powder in packet 1 ea PO DAILY gabapentin 300 mg capsule 300 mg PO TID levothyroxine 125 mcg tablet 125 mcg PO DAILY Lactobacillus acidoph-L.bulgar 1 million cell tablet 2 tab PO DAILY lidocaine 5 % adhesive patch,medicated 1 patch topical DAILY Zenpep 40,000-126,000- 168,000 unit capsule,delayed release(DR/EC) 2 cap PO BID celecoxib 200 mg capsule 200 mg PO BID PRN PRN (Reason: pain) diphenoxylate-atropine 2.5-0.025 mg tablet 2 tab PO Q6H PRN PRN (Reason: diarrhea) cholecalciferol (vitamin D3) 50 mcg (2,000 unit) capsule 50 mcg PO DAILY Eucerin Advanced Repair Cream 1 applic topical PRN glycopyrrolate 1 mg tablet PO insulin lispro 100 unit/mL insulin pen 1 sliding scale dose SUBCUT TIDCM Patient Comments: INJECT 20 UNITS WITH MEALS PLUS SLIDING SCALE #3 (GIVE 3 UNITS FOR EVERY 50 OVER 110). MAX DOSE OF 90 UNITS DAILY metronidazole 500 mg tablet 500 mg PO TID nystatin 100,000 unit/gram powder 1 applic topical BID ondansetron HCl 8 mg tablet 8 mg PO Q8H PRN PRN (Reason: nausea/vomiting) olanzapine 5 mg tablet 5 mg PO QHS olanzapine 2.5 mg tablet 2.5 mg PO QHS terbinafine HCl 250 mg tablet 250 mg PO DAILY vitamin B complex Capsule 1 cap PO Q24H oxycodone 10 mg tablet 10 mg PO TID PRN Primary Care Provider: Goyo Beckett Referrals: Goyo Beckett, [Primary Care Provider] - As soon as possible Print Language: Kosovan Disposition Disposition: Against Medical Advice
--- NOTE | 2025-01-24 18:05 | RAD_ITS ---
PROCEDURE: RIGHT ELBOW MIN 3 VIEWS 01/24/2025 REASON FOR EXAM: INJURY/FALL TECHNIQUE: Procedure Code: RADEL Modality: DX Procedure: ELBOW MIN 3 VIEWS Laterality: Right COMPARISON: None. FINDINGS: No acute fracture or dislocation. Alignment is anatomic. Preserved joint spaces. No joint effusion. Mild soft tissue swelling at the dorsal aspect of the elbow. No radiopaque foreign body. RAD/Elbow min 3 Views IMPRESSION: No acute fracture or dislocation. Reading Location: [id number]
[2025-01-24 18:11] LABS: Hematocrit 29.0 % (37-47); Hemoglobin 9.9 g/dL (12.0-15.0); Immature Granulocytes Count 0.210 X10^3/uL (0.0-0.0); Mean Corp Hgb Conc 34.1 g/dL (32-36); Mean Corpuscular Volume 89.8 fL (81-99); Mean Platelet Vol. 11.4 fl (6.2-12.0); NRBC Flagged by Analyzer 0.5 % (0-5); POSITIVE MORPHOLOGY YES; Platelet Count 407 K/mm3 (150-450); RBC Distribution Width CV 24.2 % (11.6-14.6); RBC Distribution Width SD 74.7 fl (35.1-43.9); Red Blood Count 3.23 M/mm3 (4.2-5.4); White Blood Count 8.5 K/mm3 (4.4-11.0)
[2025-01-24 18:41] LABS: AST(SGOT) 255 U/L (<=31); Alanine Aminotransfer ALT/SGPT 49 U/L (<=34); Albumin, Serum 2.9 g/dL (3.5-5.0); Alkaline Phosphatase 1131 U/L (35-104); Anion Gap 12 (5-15); BUN 10 mg/dL (4-19); BUN/Creat Ratio 24.2 RATIO (10-20); Calcium,Total 10.0 mg/dL (7.6-11.0); Carbon Dioxide 25.0 mmol/L (21.0-32.0); Chloride 91 mmol/L (98-108); Estimated Creatinine Clearance 138.84 ml/min (50-250); Globulin 3.8 g/dL (2.2-4.2); Glucose 440 mg/dL (70-99); Potassium 4.5 mmol/L (3.3-5.1)
[2025-01-24 19:05] LABS: Differential Indicated SCAN CRITERIA MET
[2025-01-24 19:06] LABS: Anisocytosis 1+; Differential Comment SCANNED; Polychromasia 1+
[2025-01-24 19:07] LABS: Hypochromasia 1+; Target Cells 1+
--- NOTE | 2025-01-24 20:45 | ED.RN ---
This RN attempted to complete the patient's medication reconciliation. The patient states, well they just redid everything so I don't even know. This RN completed the list with the help of the patient's S/O and the patient at the bedside. However, the list is potentially inaccurate and would need clarification.
--- NOTE | 2025-01-24 20:56 | PCM.HP.STD ---
HPI - General HPI Narrative The patient is a 54 y/o F w/ PMHx: Anxiety and Depression, CHRISTENSEN, GERD w/ history of duodenal ulcer, COPD/Asthma, Non-Allergic rhinitis, HTN, HLD, Hypothyroidism, Tobacco use, Stage IV pancreatic cancer with metastatic disease to the bones and liver who presents to the [facility] ED on 01/24/25 with history of her left lower extremity unfortunately giving out causing her to fall and hit her face on the register with significant pain to the left upper extremity and face prompting family to bring the patient in for evaluation. Workup in the ED included T97.8, heart rate 92, BP 106/58, respiratory rate 18, 97% on room air with most recent repeat vitals T98, heart rate 91, BP 113/63, respiratory rate 18, 94% room air, CBC with WC 8.5, Hgb 9.9, MCV 89.8, platelet 407 with increased immature granulocytes and lymphopenia, CMP with sodium 127, chloride 91, BUN/Cr 10/0.40, GFR 118, glucose 440, T. bili 3.89, AST/LT 255/49, alk phos 1131, plain film with no acute fracture or dislocation, plain film of the right elbow with no acute fracture or dislocation, CT of the lumbar spine with no acute lumbosacral spinal fracture or malalignment, minimal spondylitic changes, ill-defined heterogeneous sclerotic lesion with irregular cortex/periosteal reaction involving the right iliac bone presumably metastatic with no other osseous lesion appreciated, circumferential thickening of the imaged urinary bladder, nonspecific small volume pelvic ascites and generalized subcutaneous edema. Diffuse LLE T10 metastatic disease Stage IV metastatic pancreatic cancer with disease to the bone and liver with significant hyperbilirubinemia and worsening transaminitis as well as elevated alkaline phosphatase of unclear exact etiology, possibly obstructive process concurrently given disease history: Admission T. bili 3.9, AST/ALT 255/49, alk phos 1113, most recent labs previously note 12/02/2024 bilirubin 0.35, AST/ALT 63/23, alk phos 591 Acute on chronic hyponatremia, hypochloremia, suspect component of hypovolemia given notable decline with underlying metastatic cancer: Admission sodium 127, chloride 91, will continue judiciously hydrate and repeat CMP in AM. Chronic normocytic anemia: Admission hemoglobin 9.9, MCV 89.8, baseline hemoglobin noted more recently 12/03/2019 510.2, likely secondary to underlying cancer and therapies, continue to trend CBC. [facility] Medical History Carcinoid syndrome Anxiety Cholangitis Dysphagia Chronic dental infection Heart murmur Malignant neoplasm of pancreas Vitamin D deficiency Hypertension Hypothyroidism Hyperlipidemia Liver cirrhosis secondary to nonalcoholic steatohepatitis (CHRISTENSEN) Non-allergic rhinitis GERD (gastroesophageal reflux disease) COPD (chronic obstructive pulmonary disease) Asthma Nontoxic multinodular goiter Duodenal ulcer Diabetes mellitus Liver cancer Pancreatic cancer Home Medications ?Medication ?Instructions ?Recorded ?Last Taken ?Type albuterol sulfate 90 mcg/actuation 2 puff inhalation 4X/DAY PRN PRN 03/24/13 04/17/18 History aerosol inhaler (Ventolin HFA) Shortness Of Breath loratadine 10 mg tablet (Allergy 10 mg PO DAILY 03/24/13 04/17/18 History Relief (loratadine)) atorvastatin 20 mg tablet 20 mg PO QHS 02/20/14 04/17/18 History alogliptin 25 mg tablet 25 mg PO DAILY 08/25/18 Unknown History pantoprazole 40 mg tablet,delayed 40 mg PO BID 08/25/18 Unknown History release cholecalciferol (vitamin D3) 125 5,000 unit PO DAILY 05/20/19 Unknown History mcg (5,000 unit) capsule insulin glargine 100 unit/mL (3 62 unit subcut QHS 05/20/19 Unknown History mL) subcutaneous pen buprenorphine 5 mcg/hour weekly 1 patch transdermal Q7D 07/07/24 Unknown History transdermal patch (Butrans) Lactobacillus acidoph-L.bulgaricus 2 tab PO DAILY 08/18/24 Unknown History 1 million cell tablet ascorbic acid (vitamin C) 500 mg 500 mg PO DAILY 08/18/24 Unknown History tablet (Vitamin C) cholestyramine (with sugar) 4 gram 1 ea PO DAILY 08/18/24 Unknown History powder for susp in a packet dextromethorphan-guaifenesin 10 5 ml PO QHS 08/18/24 Unknown History mg-200 mg/5 mL oral liquid (Diabetic Tussin DM) gabapentin 300 mg capsule 300 mg PO TID 08/18/24 Unknown History levothyroxine 125 mcg tablet 125 mcg PO DAILY 08/18/24 Unknown History lidocaine 5 % topical patch 1 patch topical DAILY 08/18/24 Unknown History frnaoj-eqwecnps-wfykpwh 2 cap PO BID 08/18/24 Unknown History 40,000-126,000-168,000 unit capsule, delay rel (Zenpep) celecoxib 200 mg capsule 200 mg PO BID PRN PRN pain 01/24/25 Unknown History cholecalciferol (vitamin D3) 50 50 mcg PO DAILY 01/24/25 Unknown History mcg (2,000 unit) capsule diphenoxylate-atropine 2.5 2 tab PO Q6H PRN PRN diarrhea 01/24/25 Unknown History mg-0.025 mg tablet emollient combination no.119 1 applic topical PRN 01/24/25 Unknown History (Eucerin Advanced Repair topical cream) glycopyrrolate 1 mg tablet PO 01/24/25 Unknown History insulin lispro 100 unit/mL 1 sliding scale dose subcut TIDCM 01/24/25 Unknown History subcutaneous pen metronidazole 500 mg tablet 500 mg PO TID 01/24/25 Unknown History nystatin 100,000 unit/gram topical 1 applic topical BID 01/24/25 Unknown History powder olanzapine 2.5 mg tablet 2.5 mg PO QHS 01/24/25 Unknown History olanzapine 5 mg tablet 5 mg PO QHS 01/24/25 Unknown History ondansetron HCl 8 mg tablet 8 mg PO Q8H PRN PRN nausea/vomiting 01/24/25 Unknown History oxycodone 10 mg tablet 10 mg PO TID PRN 01/24/25 01/23/25 History terbinafine HCl 250 mg tablet 250 mg PO DAILY 01/24/25 Unknown History vitamin B complex 1 cap PO Q24H 01/24/25 Unknown History Allergy/AdvReac Type Severity Reaction Status Date / Time acetaminophen (From Percocet) Allergy Shortness Verified 01/24/25 15:05 of breath adhesive Allergy Shortness Verified 01/24/25 15:05 of breath amoxicillin (Amoxicillin) Allergy Shortness Verified 01/24/25 15:05 of breath codeine Allergy Shortness Verified 01/24/25 15:05 of breath fentanyl Allergy UNRESPONSIV Verified 01/24/25 15:05 E metformin Allergy Other Verified 01/24/25 15:05 morphine Allergy Shortness Verified 01/24/25 15:05 of breath naproxen (From Naprosyn) Allergy Rash Verified 01/24/25 15:05 oxycodone HCl (From Percocet) Allergy Shortness Verified 01/24/25 15:05 of breath propoxyphene HCl (From Allergy Shortness Verified 01/24/25 15:05 Darvon) of breath propoxyphene napsylate (From Allergy Shortness Verified 01/24/25 15:05 Darvocet-N 100) of breath atomoxetine HCl (From AdvReac Other Verified 01/24/25 15:05 Strattera) levothyroxine sodium (From AdvReac Other Verified 01/24/25 15:05 Synthroid) CLINDAMYCIN Allergy SEIZURES Uncoded 02/26/23 00:29 Surgical History Hx of colectomy H/O splenectomy Social History household members: spouse housing: house Smoking Status: Current every day smoker tobacco type: cigarettes alcohol intake: never substance use type: does not use Vital Signs Vital Signs Vital Signs: 01/24/25 15:01 01/24/25 16:40 01/24/25 17:10 Temperature 97.8 F Temperature Source Oral Pulse Rate 92 88 Respiratory Rate 18 18 Respiratory Effort Normal Respiratory Depth Normal Respiratory Pattern Normal Blood Pressure 106/58 L 106/54 L Blood Pressure Mean 74 71 Pulse Ox 97 92 Oxygen Delivery Method Room Air Room Air Room Air 01/24/25 19:00 01/24/25 20:42 Temperature 98 F Temperature Source Pulse Rate 93 91 Respiratory Rate 18 18 Respiratory Effort Respiratory Depth Respiratory Pattern Blood Pressure 116/59 L 113/63 Blood Pressure Mean 78 79 Pulse Ox 96 94 Oxygen Delivery Method Room Air Weight Weight: 135 lb 9.349 oz Body Mass Index (BMI) 23.3 Results Lab / Micro Data 01/24/25 17:55 01/24/25 17:55 Labs: Laboratory Results - last 24 hr 01/24/25 17:55: WBC 8.5, RBC 3.23 L, Hgb 9.9 L, Hct 29.0 L, MCV 89.8, MCH 30.7, MCHC 34.1, RDW Std Deviation 74.7 H, RDW Coeff of Fareed 24.2 H, Plt Count 407, MPV 11.4, Immature Gran % (Auto) 2.500 H, Neut % (Auto) 81.5 H, Lymph % (Auto) 7.4 L, Harvey % (Auto) 8.2, Eos % (Auto) 0.0, Baso % (Auto) 0.4, Absolute Neuts (auto) 6.9, Absolute Lymphs (auto) 0.63 L, Nucleated RBC % 0.5, Differential Comment SCANNED, Platelet Estimate ADEQUATE, Polychromasia 1+, Hypochromasia 1+, Anisocytosis 1+, Target Cells 1+, Sodium 127 L, Potassium 4.5, Chloride 91 L, Carbon Dioxide 25.0, Anion Gap 12, BUN 10, Creatinine 0.40 L, Estim Creat Clear Calc 138.84, Est GFR (MDRD) Non-Af 118, BUN/Creatinine Ratio 24.2 H, Glucose 440 H, Calcium 10.0, Total Bilirubin 3.89 H, AST 255 H, ALT 49 H, Alkaline Phosphatase 1131 H, Total Protein 6.7, Albumin 2.9 L, Globulin 3.8, Albumin/Globulin Ratio 0.8 L Imaging Radiology Impression Wrist X-Ray 01/24/25 15:49 IMPRESSION: No acute fracture or dislocations. Moderate scattered degenerative changes. No acute soft tissue abnormalities. No radiographic foreign body. Reading Location: [facility] Lumbar Spine CT 01/24/25 17:44 IMPRESSION: 1. No acute lumbosacral spine fracture or malalignment. Minimal spondylotic changes. 2. Ill-defined heterogeneous sclerotic lesion with irregular cortex/periosteal reaction involving the right iliac bone, presumably metastatic. No other osseous lesion appreciated. 3. Circumferential thickening of the imaged urinary bladder; correlate clinically for possible cystitis. 4. Nonspecific small volume pelvic ascites, and generalized subcutaneous edema. Reading Location: [facility] Elbow X-Ray 01/24/25 18:05 IMPRESSION: No acute fracture or dislocation. Reading Location: [facility]
[2025-01-24] MEDS: 0.9% Normal Saline (500mL Bag) 500 ML 150 ML IV (22:48)
[2025-01-24 23:00] LABS: Red Blood Cells-Urine 0 SEEN /hpf (0-5)
[2025-01-24 23:02] LABS: Color, Urine Amber (Yellow); Glucose, Dipstick 100 mg/dl (Normal); Ketone-Dipstick 50 mg/dl (Negative); Leukocyte Esterase-Dipstick 25 /ul (Negative); Nitrite-Dipstick Positive (Negative); Occult Blood-Urine Negative /ul (Negative); Protein-Dipstick 30 mg/dl (Negative); Specific Gravity, Urine 1.025 (1.002-1.030)
[2025-01-24 23:12] LABS: Urine Bilirubin Dipstick 6 mg/dL (Negative)
--- NOTE | 2025-01-24 23:20 | CT_ITS ---
PROCEDURE: SPINE THORACIC WITHOUT CONTRAS 01/24/2025 REASON FOR EXAM: PAIN, CANCER, LLE WEAKNESS TECHNIQUE: Procedure Code: CTSPTH Modality: CT Procedure: SPINE THORACIC WITHOUT CONTRAS Coronal and Sagittal reconstruction series were provided. One or more dose reduction techniques were used (e.g., Automated exposure control, adjustment of the mA and/or kV according to patient size, use of iterative reconstruction technique). RADIATION DOSE SUMMARY: CTDlvol: 18.42 mGy DLP: 673 mGycm COMPARISON: CT scan of the lumbar spine on 01/24/2025. FINDINGS: T7-T8, moderate diffuse disc bulge. Superimposed central/left paracentral disc extrusion measuring 5.8 mm. The spinal canal is moderately narrowed. Mild bilateral neural foramina narrowing. Heterogeneous lytic/sclerotic lesion in the right lateral aspect of L1 vertebral body, probably metastatic. Minimal acute/subacute compression deformity of the superior endplate of L1. Heterogeneous density of the visualized bones, possibly secondary to osteopenia/bone marrow infiltration. There are diffuse spondylotic changes. Findings are demonstrated to by diffuse disc space narrowing, osteophyte formation and degenerative endplate sclerosis. There is diffuse facet joint arthropathy with secondary bilateral neural foramina narrowing. No other fracture or dislocation is seen. Mild bilateral pleural effusions. Passive atelectatic airspace disease of the lower lobes. Multiple ill-defined hypodense liver lesions are noted with the largest measuring 2.3 cm. Bilateral pulmonary nodules are noted with the largest measuring [address]/Spine Thoracic without Contras IMPRESSION: T7-T8, moderate diffuse disc bulge. Superimposed central/left paracentral disc extrusion measuring 5.8 mm. The spinal canal is moderately narrowed. Mild bilateral neural foramina narrowing. Heterogeneous lytic/sclerotic lesion in the right lateral aspect of L1 vertebra l body, probably metastatic. Minimal acute/subacute compression deformity of the superior endplate of L1. Heterogeneous density of the visualized bones, possibly secondary to osteopenia /bone marrow infiltration. Mild bilateral pleural effusions. Passive atelectatic airspace disease of the lower lobes. Multiple ill-defined hypodense liver lesions are noted with the largest measuri ng 2.3 cm. Reading Location[facility]
[2025-01-24 23:32] LABS: Mucous, Urine 0 SEEN /hpf (<or=2+); Squamous Epithelial Cells - UA 0-5 SEEN /hpf (5-10)
[2025-01-24 23:33] LABS: Calcium Oxalate Crystals Ur 2+ /hpf (<or=2+)
[2025-01-25 01:00] VITALS: BP 106/60; PULSE 92; RESP 18; O2SAT 94
[2025-01-25 01:26] VITALS: BP 118/59; PULSE 97; RESP 18; TEMP 36.8; O2SAT 94
--- NOTE | 2025-01-25 01:44 | PCA ---
[facility] CALLED [facility] TO LET THEM KNOW PT HAS SIGNED OUT AND LEFT AMA. SPOKE WITH ADELA.
== END 2025-01-25 01:38 | disposition left against medical advice (07) ==
PROVIDERS: Emergency Provider Emergency Medicine; PCP Student in an Organized Health Care Education/Training Program; Visit Provider Emergency Medicine
DX: R29.898 Other symptoms and signs involving the musculoskeletal system (principal); C78.7 Secondary malignant neoplasm of liver and intrahepatic bile duct; C79.51 Secondary malignant neoplasm of bone; J44.9 Chronic obstructive pulmonary disease, unspecified; E11.9 Type 2 diabetes mellitus without complications; Z79.4 Long term (current) use of insulin; N39.0 Urinary tract infection, site not specified; Z53.29 Procedure and treatment not carried out because of patient's decision for other reasons; I10 Essential (primary) hypertension; E78.5 Hyperlipidemia, unspecified; F17.210 Nicotine dependence, cigarettes, uncomplicated; E87.1 Hypo-osmolality and hyponatremia; K21.9 Gastro-esophageal reflux disease without esophagitis; M54.50 Low back pain, unspecified; W19.XXXA Unspecified fall, initial encounter
CPT/HCPCS: 72128; 72131; 73080; 73110; 80053; 81001; 85025; 87086; 87088; 96361; 96365; 99285; A4216